=== PATIENT | male | born 1965 | race Caucasian/White ===

== ENCOUNTER 2016-09-17 16:33 | Inpatient (IN) | payer MEDICAID ==
--- NOTE | 2016-09-17 18:45 | C.PDOC ---
History Of Present Illness 51 year old patient presents to the ED requesting detox from heroin and Xanax. Patient admits his last use was yesterday. Patient is pre-screened. He denies any complaints at this time and shows no signs of withdrawal. Time Seen by Provider: 09/17/16 18:14 Chief Complaint (Nursing): Substance Abuse History Per: Patient History/Exam Limitations: no limitations Onset/Duration Of Symptoms: Other Current Symptoms Are (Timing): Still Present Suicide/Self Injury Attempted (Context): None Modifying Factor(s): Other (heroin, xanax) Severity: None Pain Scale Rating Of: 0 Recent travel outside of the [place]: No Additional History Per: Patient Past Medical History Reviewed: Historical Data, Nursing Documentation, Vital Signs Vital Signs: Last Vital Signs Temp 98.2 F 09/17/16 17:13 Pulse 46 L 09/17/16 19:39 Resp 16 09/17/16 19:39 BP 118/65 09/17/16 19:39 Pulse Ox 97 09/17/16 19:39 - Medical History PMH: Back Problems - [facility] Procedures DETOXIFICATION SERVICES FOR SUBSTANCE ABUSE TREATMENT (09/10/15) GROUP EXCAVATING MACHINE OPERATOR FOR SUBSTANCE ABUSE TREATMENT, PSYCHOEDUCATION (09/10/15) Family History: States: Unknown Family Hx - Social History Hx Tobacco Use: Yes Hx Alcohol Use: Yes Hx Substance Use: Yes - Immunization History Hx Tetanus Toxoid Vaccination: No Hx Influenza Vaccination: No Hx Pneumococcal Vaccination: No Review Of Systems Except As Marked, All Systems Reviewed And Found Negative. Constitutional: Positive for: Other (detox) Respiratory: Negative for: Shortness of Breath Gastrointestinal: Negative for: Vomiting Neurological: Negative for: Headache, Dizziness Physical Exam - Physical Exam Appears: No Acute Distress, Other (flat affect) Skin: Warm, Dry Head: Atraumatic, Normacephalic Eye(s): bilateral: Normal Inspection Neck: Normal ROM, Supple Chest: Symmetrical Cardiovascular: Rhythm Regular Respiratory: Normal Breath Sounds, No Rales, No Rhonchi, No Wheezing Back: Normal Inspection Extremity: Normal ROM, No Deformity Neurological/Psych: Oriented x3, Normal Speech Gait: Steady ED Course And Treatment - Laboratory Results Result Diagrams: 09/17/16 19:24 09/17/16 19:24 Lab Interpretation: No Acute Changes O2 Sat by Pulse Oximetry: 97 (room air) Pulse Ox Interpretation: Normal Medical Decision Making Medical Decision Making: Labs ordered and reviewed. In my clinical judgment patient is medically cleared and stable for psychiatric admission. hospital social worker contacted for evaluation. As per CW patient is to be admitted for detox of substance abuse Disposition - Disposition Disposition: HOSPITALIZED Disposition Time: 20:00 Condition: STABLE - POA Present On Arrival: None - Clinical Impression Clinical Impression: Heroin abuse - PA / OPERATOR GROUND BASED [employer] DEFENCE / Resident Statement MD/DO has reviewed & agrees with the documentation as recorded. - Scribe Statement The provider has reviewed the documentation as recorded by the Scribe Sari Estrada All medical record entries made by the Scribe were at my direction and personally dictated by me. I have reviewed the chart and agree that the record accurately reflects my personal performance of the history, physical exam, medical decision making, and the department course for this patient. I have also personally directed, reviewed, and agree with the discharge instructions and disposition. Decision To Admit - Pt Status Changed To: Hospital Disposition Of: Inpatient - Admit Certification Admit to Inpatient:: After my assessment, the patient will require hospitalization for at least two midnights. This is because of the severity of symptoms shown, intensity of services needed, and/or the medical risk in this patient being treated as an outpatient. - InPatient: Physician Admission Certification: I certify that this patient requires 2 or more midnights of care for the following reason:: for heroin detox - . Bed Request Type: Detox Admitting Physician: Chano Edwards Patient Diagnosis: Heroin abuse
[2016-09-17 19:27] LABS: BASO % 0.8 % (0.0-2.0); EOS # 0.1 K/uL (0.0-0.7); EOS % 1.6 % (0.0-4.0); HEMATOCRIT 40.1 % (35.0-51.0); LYMPH # 2.2 K/uL (1.0-4.3); LYMPH % 41.1 % (20.0-40.0); MEAN CORPUSCULAR HEMOGLOBIN 30.9 pg (27.0-31.0); MEAN CORPUSCULAR HGB CONC 32.9 g/dL (33.0-37.0); MEAN PLATELET VOLUME 9.2 fL (7.2-11.7); MONO # 0.4 K/uL (0.0-0.8); MONO % 8.4 % (0.0-10.0); RED CELL DISTRIBUTION WIDTH 14.5 % (11.5-14.5); WHITE BLOOD COUNT 5.3 K/uL (4.8-10.8)
[2016-09-17 19:35] LABS: CHLORIDE 103 mmol/L (98-107); POTASSIUM 4.2 mmol/L (3.6-5.2); SODIUM 141 mmol/L (132-148)
[2016-09-17 19:37] LABS: AST/SGOT 22 U/L (17-59); BILIRUBIN,TOTAL 0.7 mg/dL (0.2-1.3); CARBON DIOXIDE 31 mmol/L (22-30); GFR AFRICAN-AMERICAN > 60
[2016-09-17 19:38] LABS: ALB/GLOB RATIO 1.6 (1.0-2.1); ALCOHOL SERUM < 10 mg/dl (0-10); ALKALINE PHOSPHATASE 58 U/L (38-126); ALT/SGPT 19 U/L (21-72); BLOOD UREA NITROGEN 17 mg/dL (9-20); CALCIUM 8.7 mg/dl (8.6-10.4); GLUCOSE,RANDOM 107 mg/dL (75-110); RBC URINE 1 /hpf (0-3); TOTAL PROTEIN 6.6 g/dL (6.3-8.3); URINE BACTERIA OCC (<OCC); URINE BILIRUBIN NEGATIVE (NEGATIVE); URINE BLOOD NEGATIVE (NEGATIVE); URINE GLUCOSE (UA) NORMAL (Normal); URINE KETONE TRACE mg/dL (NEGATIVE); URINE LEUKOCYTE ESTERASE NEG Leu/uL (Negative); URINE PROTEIN 1+ mg/dL (NEGATIVE); URINE UROBILINOGEN NORMAL mg/dL (0.2-1.0); WBC URINE 1 /hpf (0-5)
[2016-09-17] MEDS ORDERED: Aluminum Hydroxide/Magnesium Hydroxide Susp (30 mL) PO PRN (22:18)
--- NOTE | 2016-09-18 12:33 | PCM.PSYCH ---
Initial Psychiatric Evaluation - Initial Psychiatric Evaluation Type of Admission: Voluntary Legal Status: Capacity Chief Complaint (in patient's own words): "I need to stop heroin" History of Present Illness and Precipitating Events: Patient seen and chart reviewed. He is well-known to us from recent admission. Patient is a 51 year old single male who is unemployed, on SSI, and lives with his mother in [place] Patient reports using "10-15 bags" of heroin per day since late june. Says he was clean for one month but relapsed b/c he couldn;t get into [facility]. Reason was vague. Reports last use was yesterday. Patient reports using 4 mg of Xanax for 2 years. Last use was few days ago. Denies wdw sxs or seizures but is afraid. Used to be an "alcoholic" Patient reports that he has been to detox over 10 times and denies ever going to rehabilitation. Patient is not sure about his after care but is thinking about MAT again with [facility]. He has drug court on Tuesday b/c he was busted with "9 bags." Patient reports he has been incarcerated in the past for 33 months for selling drugs and that that was his longest period of sobriety. Past psychiatric history: none Family psychiatric history: none Past medical history: chronic neck and back pain secondary to workplace injury for which he went on disability Current Medications: Active Medications Generic Name Dose Route Start Last Admin Trade Name Freq PRN Reason Stop Dose Admin Al Hydrox/Mg Hydrox/Simethicone 30 ml 09/17/16 22:18 Maalox 30 Ml PO TID PRN Indigestion / Heartburn Hydroxyzine HCl 25 mg 09/17/16 22:19 Atarax PO Q4H PRN Anxiety Ibuprofen 600 mg 09/17/16 22:19 Motrin Tab PO Q6H PRN Pain, moderate (4-7) Loperamide HCl 2 mg 09/17/16 22:18 Imodium PO Q8 PRN Diarrhea Lorazepam 1 mg 09/18/16 10:00 09/18/16 12:11 Ativan PO 09/21/16 09:59 1 mg BID THI Administration Taper Methadone HCl 10 mg 09/18/16 10:00 09/18/16 10:37 Methadone PO 09/21/16 09:59 10 mg Q24H THI Administration Taper Methadone HCl 5 mg 09/18/16 17:00 Methadone PO 09/18/16 17:01 ONCE ONE Ondansetron HCl 4 mg 09/17/16 22:18 Zofran Tab PO Q8 PRN Nausea/Vomiting Trazodone HCl 50 mg 09/17/16 21:51 09/17/16 21:59 Desyrel PO 50 mg HS PRN Administration Insomnia Past Psychiatric History - Past Psychiatric History Previous Treatment History: None Pertinent Medical Hx (Current Medical&Sleep Prob, Allergies): Allergies Allergy/AdvReac Type Severity Reaction Status Date / Time Tetracyclines Allergy Intermediate Verified 09/17/16 17:17 Penicillins Allergy Verified 09/17/16 17:17 No Known Home Med 09/17/16 Review of Systems - Neurological Neurological: UNREMARKABLE - Psychiatric Psychiatric: Abnormal Sleep Pattern, Anxiety, Irritability. absent: Hallucinations, Homicidal Ideation, Paranoia, Suicidal Ideation Mental Status Examination - Personal Presentation Personal Presentation: Looks stated age - Affect Affect: Constricted - Motor Activity Motor Activity: Calm - Reliability in Providing Information Reliability in Providing Information: Good - Speech Speech: Organized - Mood Mood: Anxious - Formal Thought Process Formal Thought Process: No Impairment - Cognitive Functions Orientation: Person, Place, Situation, Time Sensorium: Alert Attention/Concentration: Attentive Estimate of Intelligence: Average Judgement: Intact, as evidence by: Insight regarding need for hospitalization Memory: Recent intact, as evidence by: Ability to recall events of the day, Remote intact, as evidenced by: Abilit to recall sig. 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 dependence - Recommended/Plan of Treatment Treatment Recommendations and Plan of Treatment: Opioids: -Methadone detox with low dose: 15 mg x2 days, then 10 and 5 mg He wants to be dc'ed on Tuesday due to "drug court" -As needed medications -Support and psychoeducation -MA and CBT -Attend groups and activities -Refer to MAT and rehabilitation Benzos: -Monitor withdrawal symptoms -Short ativan detox -As needed medications -Attend groups and activities -MA for abstinence 33 minutes Projected ELOS: 3 days Prognosis: Good with treament Discharge Plan and Discharge Criteria: No wdw sxs Refer to [facility] in [place] + [place] - Smoking Cessation Smoking Cessation Initiated: Yes
[2016-09-19 15:00] VITALS: RESP 18
[2016-09-20 05:56] VITALS: BP 131/84; PULSE 58; TEMP 97.7; O2SAT 99
--- NOTE | 2016-09-20 13:23 | PCM.PYCHDC ---
Mental Status Examination - Mental Status Examination Orientation: Person, Place, Situation, Time Memory: Intact Mood: Anxious Affect: Constricted Speech: Appropriate Attention: WNL Concentration: Poor Association: WNL Fund of Knowledge: WNL Formal Thought Process: No Impairment Suicidal Ideation: No Current Homicidal Ideation?: No Discharge Summary - Discharge Note Reason for Hospitalization: Heroin detox Consultations:: List each consultation separately and include: 1. Reason for request. 2. Findings. 3. Follow-up Summary of Hospital Course include:: 1. Description of specific treatment plan utilized for patients during their course of treatmen. 2. Summarize the time- course for resolution of acute symptoms and/or regressed behaviors. 3. Describe issues identified and worked on during hospitalization. 4. Describe medication utilized. 5. Describe medical problems identified and treated. 6. Reassessment of suicide risk Summary of Hospital Course: On admission: He is well-known to us from recent admission. Patient is a 51 year old single male who is unemployed, on SSI, and lives with his mother in [place] Patient reports using "10-15 bags" of heroin per day since late june. Says he was clean for one month but relapsed b/c he couldn;t get into [facility]. Reason was vague. Reports last use was yesterday. Patient reports using 4 mg of Xanax for 2 years. Last use was few days ago. Denies wdw sxs or seizures but is afraid. Used to be an "alcoholic" Patient reports that he has been to detox over 10 times and denies ever going to rehabilitation. Patient is not sure about his after care but is thinking about MAT again with [facility]. He has drug court on Tuesday b/c he was busted with "9 bags." Patient reports he has been incarcerated in the past for 33 months for selling drugs and that that was his longest period of sobriety. Past psychiatric history: none Family psychiatric history: none Past medical history: chronic neck and back pain secondary to workplace injury for which he went on disability Hospital course: The pt was admitted and started on treatment with psychotherapy, support, psychoeducation and medications. MA and CBT used. All the risks and benefits of medications are discussed and the patient understood and agreed. After care discussed with the patient. He was interested in IOP and [facility] He had an extra dose each day due to ongoing sxs but his starting dose was low, too, due to chronic bradycardia. He was asymptomatic despite very low pulse He agreed to stay until Tue and complete his detox but then Tuesday morning he suddenly decided to leave AMA b/c of a court that day. Court was for possession. He was reasured that a letter can be given but he still said no. Since he got 15 mg on Tuesday, he had a risk of withdrawal, then relapse, even OD and . Shared with him but he still declined to stay. 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
--- NOTE | 2016-09-20 13:23 | PCM.PYCHPN ---
Psychiatric Progress Note - Psychiatric Progress Note Patient seen today, length of contact: 19 min Patient Chief Complaint: "I am still withdrawing" Problems Identified/Issues Discussed: he is seen, chart reviewed and case discussed. He is in some opioid wdw. He got 10 in AM and a 5 is added to PM He understood that he would have to leave on Tuesday , not Tuesday b/c he would need 10 mg tomorrow and 5 on Tue (AM) He will get a letter for the court. Otherwise, he is OK. Isolates self at times, anxious and withdrawn but not depressed as much and not suicidal. No Ses MN and CBT used Medication Change: Yes (methadone detox adjusted) Medical Record Reviewed: Yes Mental Status Examination - Cognitive Function Orientation: Person, Place, Situation, Time Memory: Intact Attention: WNL Concentration: Poor Association: WNL Fund of Knowledge: WNL - Mood Mood: Anxious - Affect Affect: Constricted - Speech Speech: Appropriate - Formal Thought Process Formal Thought Process: No Impairment - Suicidal Ideation Suicidal Ideation: No - Homicidal Ideation Homicidal Ideation: No Goal/Treatment Plan - Goal/Treatment Plan Need for Continued Stay: Discharge may exacerbated symptoms, Severe functional impairment Progress Toward Problem(s) and Goals/Treatment Plan: Opioids: -Methadone detox adjusted He wants to be dc'ed on Tuesday due to "drug court" -As needed medications -Support and psychoeducation -MN and CBT -Attend groups and activities -Refer to MAT and rehabilitation Benzos: -Monitor withdrawal symptoms -Short ativan detox -As needed medications -Attend groups and activities -MN for abstinence Estimated Date of D/C: 09/21/16 - Smoking Cessation Smoking Cessation Initiated: Yes
--- NOTE | 2016-09-21 18:52 | CARD ---
APPROVED REPORT EKG Measurement Heart [id number] <Conclusion> Sinus bradycardia Otherwise normal ECG
== END 2016-09-20 07:55 | disposition left against medical advice (07) | DRG 743 ==
LOC: C.ER 16:33 → C.7D 20:03
PROVIDERS: ADMIT Psychiatry & Neurology Psychiatry; ATTEND Psychiatry & Neurology Psychiatry
PROC: HZ91ZZZ Pharmacotherapy for Substance Abuse Treatment, Methadone Maintenance (ICD-10-PCS; principal; 2016-09-17)
PROC: HZ2ZZZZ Detoxification Services for Substance Abuse Treatment (ICD-10-PCS; 2016-09-17)
PROC: HZ52ZZZ Individual Psychotherapy for Substance Abuse Treatment, Cognitive-Behavioral (ICD-10-PCS; 2016-09-17)
PROC: HZ56ZZZ Individual Psychotherapy for Substance Abuse Treatment, Psychoeducation (ICD-10-PCS; 2016-09-17)
DX: F11.23 Opioid dependence with withdrawal (principal); F16.20 Hallucinogen dependence, uncomplicated; M54.2 Cervicalgia; G89.29 Other chronic pain; M54.9 Dorsalgia, unspecified

== ENCOUNTER 2017-03-31 16:22 | Emergency (ER) | payer MEDICAID | END 2017-03-31 16:34 | disposition left against medical advice (07) | LOC: C.ER 16:22 | DX: Z02.89 Encounter for other administrative examinations (principal); R06.02 Shortness of breath ==

== ENCOUNTER 2017-07-21 14:09 | Emergency (ER) | payer MEDICAID ==
--- NOTE | 2017-07-21 14:56 | C.PDOC ---
History Of Present Illness 52 yo male come in for evaluation of Right thigh painful mass gradually developed for past week. Pt admits, tried to squeeze with worsening of pain and swelling, noted some discharges early today. Pt sts, similar sx in past " different parts of body". Otherwise, pt denies fever, chills, Right leg trauma or injury, weakness, deformity, sensory or vascular deficit, CP, SOB, dyspnea, abd. pain, V/D. Ambulate to ED, appears high/intoxicated. Time Seen by Provider: 07/21/17 14:38 Chief Complaint (Nursing): Abnormal Skin Integrity History Per: Patient Onset/Duration Of Symptoms: Gradual Past Medical History Reviewed: Historical Data, Nursing Documentation, Vital Signs Vital Signs: Last Vital Signs Temp 98.7 F 07/21/17 17:32 Pulse 66 07/21/17 17:32 Resp 18 07/21/17 17:32 BP 108/78 07/21/17 17:32 Pulse Ox 100 07/21/17 17:32 - Medical History PMH: Back Problems Denies: Diabetes, Hepatitis, HIV, HTN, Chronic Kidney Disease, Seizures, Sexually Transmitted Disease - [facility] Procedures DETOXIFICATION SERVICES FOR SUBSTANCE ABUSE TREATMENT (09/17/16) GROUP RABBET OPERATOR FOR SUBSTANCE ABUSE TREATMENT, PSYCHOEDUCATION (09/10/15) INDIV PSYCHOTHERAPY FOR SUBSTANCE ABUSE, COGNITIV BEHAVIORAL (09/17/16) INDIV PSYCHOTHERAPY FOR SUBSTANCE ABUSE, PSYCHOEDUCATION (09/17/16) PHARMACOTHERAPY FOR SUBSTANCE ABUSE, METHADONE MAINT (09/17/16) Family History: States: No Known Family Hx - Social History Hx Tobacco Use: Yes Hx Alcohol Use: No Hx Substance Use: Yes - Immunization History Hx Tetanus Toxoid Vaccination: No Hx Influenza Vaccination: No Hx Pneumococcal Vaccination: No Review Of Systems Except As Marked, All Systems Reviewed And Found Negative. Constitutional: Negative for: Fever, Chills ENT: Negative for: Throat Pain Cardiovascular: Negative for: Chest Pain Respiratory: Negative for: Cough, Shortness of Breath, Wheezing, Other Gastrointestinal: Negative for: Nausea, Vomiting, Abdominal Pain, Diarrhea Genitourinary: Negative for: Dysuria Musculoskeletal: Positive for: Leg Pain Skin: Positive for: Lesions Neurological: Negative for: Weakness, Numbness, Headache, Dizziness Physical Exam - Physical Exam Appears: Well, No Acute Distress, Other (appears intoxicated) Skin: Normal Color, Warm, Dry, Other (Right anterior thigh: small tender mass 2cm diameter with open wound, (+) scant purulent discharge, (+) erythema, (+) proximal streaking. No flactulance.) Head: Normacephalic Eye(s): bilateral: PERRL (pin-point B/L) Nose: No Flaring, No Discharge Throat: No Drooling Neck: Trachea Midline, Supple Cardiovascular: Rhythm Regular Respiratory: No Decreased Breath Sounds, No Accessory Muscle Use, No Stridor, No Wheezing Gastrointestinal/Abdominal: Soft, No Tenderness, No Distention, No Guarding Back: No CVA Tenderness Extremity: Normal ROM (RLE), No Tenderness, No Pedal Edema, No Deformity, No Swelling Neurological/Psych: Oriented x3, Normal Speech, Normal Motor, Normal Sensation, Normal Reflexes ED Course And Treatment - Laboratory Results Result Diagrams: 07/21/17 15:06 07/21/17 15:06 Lab Interpretation: No Acute Changes O2 Sat by Pulse Oximetry: 95 Pulse Ox Interpretation: Normal Progress Note: Pt was OBS in Ed for 2.5 hours. On re-evaluation, pt appears AAO #3, comfortable, not in any apparent distress. Afebrile, hemodynamicaly stable. PulsEOx 95 %RA. Neck: Supple, (-) meningeal sign. Lungs: CTA B/L, BS equal B/L. Abd: benign, (-) guarding, (-) rebound. RLE: exam c/w Right anterior thigh small early abscess with cellulitis, self-draining, no flactulance. Neurologicaly intact. Blood work review and appears without acute abnormalities, no acute leukocytosis. Blood Cx- pending. Pt received prophy Vanco #1. Pt advised on course of ds. ref. to F/u with PMD or ED in 2 days for re-evaluation without fail. Return to ED if no improvement n 2 days or any worsening or new changes. Disposition Counseled Patient/Family Regarding: Studies Performed, Diagnosis, Need For Followup, Rx Given - Disposition Referrals: [facility] [Outside] Disposition: HOME/ ROUTINE Disposition Time: 16:35 Condition: STABLE Additional Instructions: Take medication as prescribed Warm salty water compresses to area 2-3 times daily for 5 minutes Return to ED in 2 days if no improvement in circled redness around wound or if developed fever, or any other new changes Follow up with PMD in2 -3 days for re-evaluation. Prescriptions: Clindamycin [Cleocin] 300 mg PO Q6 #28 cap Prednisone [Deltasone] 40 mg PO DAILY #6 tablet Instructions: Skin Abscess, Cellulitis (Skin Infection), Adult (DC) Forms: [email or web address] (Wolof) - Clinical Impression Clinical Impression: Cellulitis, Abscess
[2017-07-21 15:10] LABS: BASO % 0.4 % (0.0-2.0); EOS # 0.2 K/uL (0.0-0.7); EOS % 3.1 % (0.0-4.0); HEMOGLOBIN 12.9 g/dL (12.0-18.0); LYMPH % 25.6 % (20.0-40.0); MEAN CELL VOLUME 93.6 fL (80.0-94.0); MEAN CORPUSCULAR HEMOGLOBIN 31.6 pg (27.0-31.0); MEAN CORPUSCULAR HGB CONC 33.8 g/dL (33.0-37.0); MEAN PLATELET VOLUME 9.4 fL (7.2-11.7); MONO # 0.7 K/uL (0.0-0.8); MONO % 9.4 % (0.0-10.0); NEUT # 4.8 K/uL (1.8-7.0); NEUT % 61.5 % (50.0-75.0); NRBC % 0.1 % (0.0-2.0); RBC 4.08 Mil/uL (4.40-5.90); RED CELL DISTRIBUTION WIDTH 13.8 % (11.5-14.5); WHITE BLOOD COUNT 7.7 K/uL (4.8-10.8)
[2017-07-21 15:22] LABS: BLOOD UREA NITROGEN 17 mg/dL (9-20); CALCIUM 8.9 mg/dl (8.6-10.4); GFR AFRICAN-AMERICAN > 60; GFR NON-AFRICAN AMERICAN > 60
[2017-07-21] MEDS ORDERED: Vancomycin 1 gm/NS 200 ml 1 GM/200 ML BAG IVPB ONE ×2 (16:00)
[2017-07-21 16:25] LABS: URINE BILIRUBIN NEGATIVE (NEGATIVE); URINE BLOOD NEGATIVE (NEGATIVE); URINE CLARITY Hazy (Clear); URINE COLOR Yellow (YELLOW); URINE GLUCOSE (UA) NORMAL (Normal); URINE LEUKOCYTE ESTERASE NEG Leu/uL (Negative); URINE PROTEIN NEGATIVE (NEGATIVE); URINE UROBILINOGEN NORMAL mg/dL (0.2-1.0)
[2017-07-21 16:45] LABS: BARBITURATES, UR NEGATIVE (NEGATIVE); BENZODIAZEPINES, UR NEGATIVE (NEGATIVE); OPIATES, UR NEGATIVE (NEGATIVE); PHENCYCLIDINE, UR NEGATIVE (NEGATIVE)
[2017-07-21 17:47] VITALS: BP 108/78; PULSE 66; RESP 18; TEMP 98.7
[2017-07-23 14:59] VITALS: O2SAT 95
== END 2017-07-21 17:35 | disposition home or self-care (01) ==
LOC: C.ER 14:09
DX: L03.115 Cellulitis of right lower limb (principal); L02.415 Cutaneous abscess of right lower limb
CPT/HCPCS: 80048; 80324; 80345; 80346; 80349; 80353; 80358; 80361; 81001; 83992; 85025; 87040; 96365; 96366; 96375; 99285; J2930; J3370

== ENCOUNTER 2017-07-27 10:43 | Observation (INO) | payer MEDICAID ==
[2017-07-27 11:40] LABS: BASO % 0.6 % (0.0-2.0); EOS % 0.5 % (0.0-4.0); HEMOGLOBIN 14.1 g/dL (12.0-18.0); LYMPH # 1.7 K/uL (1.0-4.3); LYMPH % 23.2 % (20.0-40.0); MEAN CELL VOLUME 92.9 fL (80.0-94.0); MEAN CORPUSCULAR HEMOGLOBIN 31.4 pg (27.0-31.0); MEAN CORPUSCULAR HGB CONC 33.7 g/dL (33.0-37.0); MEAN PLATELET VOLUME 8.6 fL (7.2-11.7); MONO # 0.6 K/uL (0.0-0.8); MONO % 7.8 % (0.0-10.0); NEUT # 4.9 K/uL (1.8-7.0); NEUT % 67.9 % (50.0-75.0); RBC 4.49 Mil/uL (4.40-5.90); RED CELL DISTRIBUTION WIDTH 13.7 % (11.5-14.5); WHITE BLOOD COUNT 7.2 K/uL (4.8-10.8)
--- NOTE | 2017-07-27 11:45 | C.PDOC ---
History Of Present Illness 52 y/o male presents to the ED requesting detox from alcohol and heroin. Last used yesterday. Patient states he was here for I&D of abscess to his right thigh on 07/21 and has only taken a few doses of the antibiotic due to being incarcerated for 1 day. Currently denies any pain, discharge, or bleeding from the area. No fevers, chills, nausea, or vomiting. Patient has no other complaints. Time Seen by Provider: 07/27/17 11:07 Chief Complaint (Nursing): Substance Abuse History Per: Patient History/Exam Limitations: no limitations Past Medical History Reviewed: Historical Data, Nursing Documentation, Vital Signs Vital Signs: Last Vital Signs Temp 98.0 F 07/27/17 13:30 Pulse 80 07/27/17 14:07 Resp 14 07/27/17 14:07 BP 108/46 L 07/27/17 14:07 Pulse Ox 98 07/27/17 14:50 - Medical History PMH: Back Problems Denies: Diabetes, Hepatitis, HIV, HTN, Chronic Kidney Disease, Seizures, Sexually Transmitted Disease Surgical History: No Surg Hx - [facility] Procedures DETOXIFICATION SERVICES FOR SUBSTANCE ABUSE TREATMENT (09/17/16) GROUP PHOTOGRAPHER MOTION PICTURE FOR SUBSTANCE ABUSE TREATMENT, PSYCHOEDUCATION (09/10/15) INDIV PSYCHOTHERAPY FOR SUBSTANCE ABUSE, COGNITIV BEHAVIORAL (09/17/16) INDIV PSYCHOTHERAPY FOR SUBSTANCE ABUSE, PSYCHOEDUCATION (09/17/16) PHARMACOTHERAPY FOR SUBSTANCE ABUSE, METHADONE MAINT (09/17/16) Family History: States: Unknown Family Hx - Social History Hx Tobacco Use: Yes Hx Alcohol Use: No Hx Substance Use: No (heroin) - Immunization History Hx Tetanus Toxoid Vaccination: No Hx Influenza Vaccination: No Hx Pneumococcal Vaccination: No Review Of Systems Constitutional: Negative for: Fever, Chills Skin: Positive for: Other (abscess to right thigh) Psych: Positive for: Other (substance abuse). Negative for: Suicidal ideation Physical Exam - Physical Exam Appears: No Acute Distress Skin: Other (Healing abscess to proximal right thigh, no active drainage, erythema, or induration) Head: Atraumatic, Normacephalic Eye(s): bilateral: PERRL, EOMI Nose: Normal Oral Mucosa: Moist Neck: Supple Chest: No Tenderness Cardiovascular: Rhythm Regular, No Murmur Respiratory: No Rales, No Rhonchi, No Wheezing, Other (Clear to auscultation bilaterally) Gastrointestinal/Abdominal: Soft, No Tenderness, No Distention Back: Normal Inspection, No CVA Tenderness Extremity: No Calf Tenderness, No Swelling Neurological/Psych: Oriented x3, Normal Speech, No Other (gross focal deficits) ED Course And Treatment - Laboratory Results Result Diagrams: 07/27/17 11:37 07/27/17 11:37 O2 Sat by Pulse Oximetry: 98 (RA) Pulse Ox Interpretation: Normal Medical Decision Making Medical Decision Making: Time: 11:20 Initial Plan: * Urine drug screen * Alcohol serum * CMP * CBC * Urinalysis * Pending detox bed placement 157 pm pt is medically cleared for detox admission. pt has not completed clindamycin for recent abscess; recommend pt get clindamycin 300 mg po q 6 for next 7 days. 215 pm pt is bradycardic; ekg ordered, which shows fli[pped twaves in lateral leads, no active chest pain. different from ekg of 09/22. pt is cocaine positive on utox. 240 pm trop ordered, discussed with - pt to be admitted to for [facility] floor. Disposition Discussed With .: Zachery Lazo Jr. Doctor Will See Patient In The: Hospital - Disposition Disposition: HOSPITALIZED Disposition Time: 14:49 Condition: GOOD Forms: [facility] (Turkish) - Clinical Impression Clinical Impression: Bradycardia, Abnormal EKG, Poly-drug misuser - PA / EMBROIDERER / Resident Statement MD/DO has reviewed & agrees with the documentation as recorded. - Scribe Statement The provider has reviewed the documentation as recorded by the Scribe (Thuy Kwon) All medical record entries made by the Scribe were at my direction and personally dictated by me. I have reviewed the chart and agree that the record accurately reflects my personal performance of the history, physical exam, medical decision making, and the department course for this patient. I have also personally directed, reviewed, and agree with the discharge instructions and disposition.
[2017-07-27 11:47] LABS: URINE BILIRUBIN NEGATIVE (NEGATIVE); URINE BLOOD NEGATIVE (NEGATIVE); URINE CLARITY Clear (Clear); URINE COLOR Yellow (YELLOW); URINE GLUCOSE (UA) NORMAL (Normal); URINE LEUKOCYTE ESTERASE NEG Leu/uL (Negative); URINE PROTEIN NEGATIVE (NEGATIVE); URINE UROBILINOGEN NORMAL mg/dL (0.2-1.0)
[2017-07-27 11:53] LABS: ALB/GLOB RATIO 1.3 (1.0-2.1); ALT/SGPT 27 U/L (21-72); AST/SGOT 21 U/L (17-59); BLOOD UREA NITROGEN 17 mg/dL (9-20); CALCIUM 8.9 mg/dl (8.6-10.4); GFR AFRICAN-AMERICAN > 60; GFR NON-AFRICAN AMERICAN > 60
[2017-07-27 11:54] LABS: ALBUMIN 4.2 g/dL (3.5-5.0)
[2017-07-27 12:08] LABS: BARBITURATES, UR NEGATIVE (NEGATIVE); PHENCYCLIDINE, UR NEGATIVE (NEGATIVE)
[2017-07-27 12:31] LABS: BENZODIAZEPINES, UR POSITIVE (NEGATIVE); OPIATES, UR POSITIVE (NEGATIVE)
--- NOTE | 2017-07-27 16:25 | CP.PCM.HP ---
History of Present Illness - History of Present Illness History of Present Illness: CC: "I want detox" HPI: Mr Fountain is a 52 year old male with a PMHx of polysubstance abuse who presented to the ED for detox. However, an EKG was done which showed t-wave changes compared to an old EKG thus the patient was admitted to medicine for obs. Patient currently has no chest pain. He states he occasionally gets deep pressure like chest pain on exertion such as when he jogs. He denies shortness of breath. Patient tested positive for cocaine however he denied using cocaine - he stated his last use for years ago. He said his friend smoked crack cocaine this morning but he did not. He's never had a stress test or had a cardiac cath. He does not have a primary medical doctor. Additionally, patient was in [facility] ER last week for a right leg cyst - he was prescribed clindamycin but only took a few doses. PMD: none PMHx: Denies PSHx: Denies Allergies: Tetracyclines, Penicillins - skin rash FamHx: Mother - DM SocialHx: smokes 1/2 ppd for last 20 years; daily pint of vodka drinker; 10 bags of daily heroin use via sniffing; Denies cocaine use; Lives at home with mother Present on Admission - Present on Admission Any Indicators Present on Admission: No Review of Systems - Constitutional Constitutional: absent: Chills, Fatigue, Fever, Weight Loss - EENT Eyes: absent: Change in Vision - Cardiovascular Cardiovascular: Chest Pain with Activity, Dyspnea on Exertion. absent: Chest Pain, Chest Pain at Rest, Diaphoresis, Dyspnea, Irregular Heart Rhythm - Respiratory Respiratory: absent: Cough, Dyspnea on Exertion, Wheezing - Gastrointestinal Gastrointestinal: absent: Abdominal Pain, Bloating, Constipation, Diarrhea - Genitourinary Genitourinary: absent: Dysuria - Musculoskeletal Musculoskeletal: absent: Arthralgias - Integumentary Integumentary: absent: Bleeding Lesions - Neurological Neurological: absent: Convulsions, Disequilibrium, Dizziness Past Patient History - Past Medical History & Family History Past Medical History?: No - Past Social History Smoking Status: Light Smoker < 10 Cigarettes Daily - CARDIAC Hx Hypertension: No - PULMONARY Hx Tuberculosis: No - NEUROLOGICAL Hx Seizures: No - HEENT Hx HEENT Problems: No - RENAL Hx Chronic Kidney Disease: No - ENDOCRINE/METABOLIC Hx Endocrine Disorders: No - HEMATOLOGICAL/ONCOLOGICAL Hx Human Immunodeficiency Virus (HIV): No - INTEGUMENTARY Hx Dermatological Problems: No - MUSCULOSKELETAL/RHEUMATOLOGICAL Hx Falls: No - GASTROINTESTINAL Hx Gastrointestinal Disorders: No - GENITOURINARY/GYNECOLOGICAL Hx Sexually Transmitted Disorders: No - PSYCHIATRIC Hx Substance Use: No (heroin) - SURGICAL HISTORY Hx Surgeries: No - ANESTHESIA Hx Anesthesia: No Meds Allergies/Adverse Reactions: Allergies Allergy/AdvReac Type Severity Reaction Status Date / Time Tetracyclines Allergy Intermediate Verified 07/21/17 14:31 Penicillins Allergy Verified 07/21/17 14:31 Physical Exam - Constitutional Appears: No Acute Distress, Unkempt - Head Exam Head Exam: ATRAUMATIC, NORMAL INSPECTION - Eye Exam Eye Exam: EOMI Pupil Exam: PERRL - ENT Exam ENT Exam: Mucous Membranes Moist - Neck Exam Neck exam: Negative for: Lymphadenopathy, Tenderness Additional comments: JVD distention - Respiratory Exam Respiratory Exam: Clear to Auscultation Bilateral, NORMAL BREATHING PATTERN. absent: Rales, Rhonchi, Wheezes - Cardiovascular Exam Cardiovascular Exam: REGULAR RHYTHM, JVD, RRR, +S1, +S2. absent: Bradycardia, Tachycardia, Systolic Murmur - GI/Abdominal Exam GI & Abdominal Exam: Normal Bowel Sounds, Soft. absent: Distended, Firm, Guarding, Hernia, Tenderness - Extremities Exam Extremities exam: Positive for: normal capillary refill, normal inspection, pedal pulses present. Negative for: tenderness Additional comments: right circumscribed 1 inch diameter cyst above right knee - Back Exam Back exam: NORMAL INSPECTION - Neurological Exam Neurological exam: Alert, CN II-XII Intact, Oriented x3 - Psychiatric Exam Psychiatric exam: Flat Affect - Skin Skin Exam: Intact, Normal Color, Warm Results - Vital Signs Recent Vital Signs: Last Vital Signs Temp 98.9 F 07/27/17 16:01 Pulse 53 L 07/27/17 16:01 Resp 20 07/27/17 16:01 BP 105/70 07/27/17 16:01 Pulse Ox 96 07/27/17 16:01 - Labs Result Diagrams: 07/27/17 11:37 07/27/17 11:37 Labs: Laboratory Results - last 24 hr 07/27/17 07/27/17 07/27/17 11:37 11:37 11:37 WBC 7.2 RBC 4.49 Hgb 14.1 Hct 41.7 MCV 92.9 MCH 31.4 H MCHC 33.7 RDW 13.7 Plt Count 169 MPV 8.6 Neut % (Auto) 67.9 Lymph % (Auto) 23.2 [place] % (Auto) 7.8 Eos % (Auto) 0.5 Baso % (Auto) 0.6 Neut # (Auto) 4.9 Lymph # (Auto) 1.7 [place] # (Auto) 0.6 Eos # (Auto) 0.0 Baso # (Auto) 0.0 Sodium 144 Potassium 4.4 Chloride 104 Carbon Dioxide 28 Anion Gap 16 BUN 17 Creatinine 0.9 Est GFR ( Amer) > 60 Est GFR (Non-Af Amer) > 60 Random Glucose 98 Calcium 8.9 Total Bilirubin 0.7 AST 21 ALT 27 Alkaline Phosphatase 85 Troponin I Total Protein 7.5 Albumin 4.2 Globulin 3.2 Albumin/Globulin Ratio 1.3 Urine Color Yellow Urine Clarity Clear Urine pH 5.0 Ur Specific [place] 1.027 Urine Protein Negative Urine Glucose (UA) Normal Urine Ketones Trace Urine Blood Negative Urine Nitrate Negative Urine Bilirubin Negative Urine Urobilinogen Normal Ur Leukocyte Esterase Neg Urine WBC (Auto) 1 Urine Opiates Screen Urine Methadone Screen Ur Barbiturates Screen Ur Phencyclidine Scrn Ur Amphetamines Screen U Benzodiazepines Scrn U Oth Cocaine Metabols U Cannabinoids Screen Alcohol, Quantitative < 10 07/27/17 07/27/17 11:37 14:51 WBC RBC Hgb Hct MCV MCH MCHC RDW Plt Count MPV Neut % (Auto) Lymph % (Auto) Adams % (Auto) Eos % (Auto) Baso % (Auto) Neut # (Auto) Lymph # (Auto) Adams # (Auto) Eos # (Auto) Baso # (Auto) Sodium Potassium Chloride Carbon Dioxide Anion Gap BUN Creatinine Est GFR ( Amer) Est GFR (Non-Af Amer) Random Glucose Calcium Total Bilirubin AST ALT Alkaline Phosphatase Troponin I 0.0220 Total Protein Albumin Globulin Albumin/Globulin Ratio Urine Color Urine Clarity Urine pH Ur Specific [place] Urine Protein Urine Glucose (UA) Urine Ketones Urine Blood Urine Nitrate Urine Bilirubin Urine Urobilinogen Ur Leukocyte Esterase Urine WBC (Auto) Urine Opiates Screen Positive H Urine Methadone Screen Positive H Ur Barbiturates Screen Negative Ur Phencyclidine Scrn Negative Ur Amphetamines Screen Negative U Benzodiazepines Scrn Positive U Oth Cocaine Metabols Positive H U Cannabinoids Screen Negative Alcohol, Quantitative Assessment & Plan (1) Abnormal EKG Assessment and Plan: Cardiology consult, Dr Campos. Follow recs. EKG shows t-wave inversions in leads V2, V3, V4, V5 which were not present on EKG from 2016 On telemetry for obs No chest pain, Troponin NEGATIVE F/U repeat EKG Aspirin 81mg PO QD Crestor 10mg PO HS F/U Lipid panel, TSH/Free T4 Status: Acute Priority: High (2) Poly-drug misuser Assessment and Plan: Psychiatry consult, Dr Guerrier. Follow recs. Once seen by angle roll operator - will transfer to detox Status: Acute Priority: High (3) Cellulitis Assessment and Plan: Right leg 1 inch circumbscribed abscess Clindamycin 300mg PO Q8H (QTc 428 on EKG) Status: Acute Priority: Medium (4) Prophylactic measure Assessment and Plan: Lovenox 40mg SC QD, SCDs No GI prophylaxis indicated Heart healthy diet Status: Acute Priority: Medium
[2017-07-28 07:23] LABS: BASO % 0.4 % (0.0-2.0); EOS # 0.1 K/uL (0.0-0.7); HEMOGLOBIN 13.5 g/dL (12.0-18.0); LYMPH # 2.8 K/uL (1.0-4.3); LYMPH % 38.5 % (20.0-40.0); MEAN CELL VOLUME 93.1 fL (80.0-94.0); MEAN CORPUSCULAR HEMOGLOBIN 31.6 pg (27.0-31.0); MONO # 0.7 K/uL (0.0-0.8); MONO % 9.1 % (0.0-10.0); NEUT # 3.6 K/uL (1.8-7.0); RBC 4.28 Mil/uL (4.40-5.90); RED CELL DISTRIBUTION WIDTH 13.7 % (11.5-14.5); WHITE BLOOD COUNT 7.3 K/uL (4.8-10.8)
[2017-07-28 07:34] LABS: LDL CHOLESTEROL 88 mg/dL (0-129)
--- NOTE | 2017-07-28 07:40 | CP.PCM.PN ---
Subjective - Date & Time of Evaluation Date of Evaluation: 07/28/17 Time of Evaluation: 07:39 - Subjective Subjective: Medicine progress note for 's service Patient was seen and examined at bedside. Patient in no acute distress. Patient denies chest pain and states he only has chest pain when he is running or exercising, but never has the chest pain at rest. Patient denies abdominal pain , nausea, vomiting, fevers, headaches. Objective - Vital Signs/Intake and Output Vital Signs (last 24 hours): Temp Pulse Resp BP Pulse Ox 97.9 F 62 20 122/78 98 07/27/17 23:00 07/27/17 23:30 07/27/17 23:00 07/27/17 23:00 07/27/17 23:00 - Medications Medications: Current Medications Acetaminophen (Tylenol 325mg Tab) 650 mg PO Q6 PRN PRN Reason: Pain, moderate (4-7) Aspirin (Aspirin Chewable) 81 mg PO DAILY [facility] Last Admin: 07/27/17 16:24 Dose: 81 mg Chlordiazepoxide (Librium) 25 mg PO Q6H [facility] Stop: 07/29/17 09:16 Last Admin: 07/28/17 03:12 Dose: 25 mg Chlordiazepoxide (Librium) 25 mg PO Q8 [facility] Stop: 07/30/17 14:01 Chlordiazepoxide (Librium) 25 mg PO BID [facility] Stop: 07/31/17 22:00 Chlordiazepoxide (Librium) 25 mg PO Q4H PRN PRN Reason: Symptoms of alcohol withdrawl Clindamycin HCl (Cleocin) 300 mg PO TID [facility] PRN Reason: Protocol Last Admin: 07/27/17 18:55 Dose: 300 mg Enoxaparin Sodium (Lovenox) 40 mg SC DAILY [facility] Folic Acid (Folic Acid) 1 mg PO DAILY [facility] Multivitamins (Hexavitamin) 1 tab PO DAILY [facility] Rosuvastatin Calcium (Crestor) 10 mg PO HS [facility] Last Admin: 07/27/17 21:48 Dose: 10 mg Thiamine HCl (Vitamin B1 Tab) 100 mg PO DAILY [facility] - Labs Labs: 07/28/17 07:00 - Constitutional Appears: No Acute Distress - Head Exam Head Exam: ATRAUMATIC, NORMAL INSPECTION - Eye Exam Eye Exam: EOMI, Normal appearance - ENT Exam ENT Exam: Mucous Membranes Moist - Respiratory Exam Respiratory Exam: Clear to Ausculation Bilateral, NORMAL BREATHING PATTERN. absent: Rhonchi, Wheezes, Respiratory Distress - Cardiovascular Exam Cardiovascular Exam: Bradycardia, +S1, +S2 - GI/Abdominal Exam GI & Abdominal Exam: Soft, Normal Bowel Sounds. absent: Distended, Tenderness - Extremities Exam Extremities Exam: Normal Inspection. absent: Pedal Edema, Tenderness - Neurological Exam Neurological Exam: Alert, Awake, Oriented x3 - Psychiatric Exam Psychiatric exam: Normal Affect, Normal Mood - Skin Skin Exam: Dry, Intact, Normal Color, Warm Assessment and Plan - Assessment and Plan (Free Text) Plan: (1) Unstable angina Assessment and Plan: Cardiology consult, Dr Campos. Follow recs. EKG shows t-wave inversions in leads V2, V3, V4, V5 which were not present on EKG from 2016 On telemetry No chest pain, Troponin NEGATIVE Aspirin 81mg PO QD Crestor 10mg PO HS Lipid panel: TG, 68, Chol 152, LDL 88, HDL40 TSH/Free T4: 2.35/7.08 Echo: per Dr. Campos note, wall motion abnormality of the mid to distal anterior wall and apex suggestive of involvement of LAD which corresponds to the EKG abnormalities; patient needs cardiac cath. (2) Poly-drug misuser Assessment and Plan: Psychiatry consult, Dr Guerrier. Follow recs. Once seen and cleared by refrigerator crater - will transfer to detox (3) Cellulitis Assessment and Plan: Right leg 1 inch circumbscribed abscess Clindamycin 300mg PO Q8H (QTc 428 on EKG) (4) Prophylactic measure Assessment and Plan: Lovenox 40mg SC QD, SCDs No GI prophylaxis indicated Heart healthy diet *Patient was seen by Dr. Campos on 07/28/17 and was taken for a cardiac cath which showed lesions on the proximal LAD (100%) and diagonal (50%). Patient is planned for [place] [facility], 07[place]17, for possible intervention.
[2017-07-28 07:41] LABS: ALB/GLOB RATIO 1.2 (1.0-2.1); ALBUMIN 3.4 g/dL (3.5-5.0); ALT/SGPT 23 U/L (21-72); AST/SGOT 23 U/L (17-59); BLOOD UREA NITROGEN 21 mg/dL (9-20); CALCIUM 8.4 mg/dl (8.6-10.4); GFR AFRICAN-AMERICAN > 60; GFR NON-AFRICAN AMERICAN > 60; HDL CHOLESTEROL 40 mg/dL (30-70)
[2017-07-28 07:43] LABS: T4 7.08 ug/dL (5.5-11.0)
[2017-07-28] MEDS ORDERED: Perflutren Lipid Microsphere 1.5 ML SUS IV ONE (09:58)
--- NOTE | 2017-07-28 11:05 | CP.PCM.CON ---
History of Present Illness - History of Present Illness History of Present Illness: I was asked to see patient by . patient is a 52 year old male with PMH HTN, polysubstance abuse who presents with progressive dyspnea and chest pain. He states symptoms began one month ago , and is described as a central chest pain. He ahs assocaited dyspnea. Symptoms occur after walking one block. He has to stop for symptosm to [facility]. Patient had an EKG reveling anterolateral T wave inversions suggestive of myocardial ischemia. Review of Systems - Constitutional Constitutional: absent: As Per HPI, Anorexia, Chills, Daytime Sleepiness, Excessive Sweating, Fatigue, Fever, Frequent Falls, Headache, Increased Appetite , Lethargy, Malaise, Night Sweats, Snoring, Sleep Apnea, Weight Gain, Weight Loss, Weakness, Other - EENT Eyes: absent: As Per HPI, Blind Spots, Blurred Vision, Change in Vision, Decreased Night Vision, Diplopia, Discharge, Dry Eye, Exophthalmos, Floaters, Irritation, Itchy Eyes, Loss of Peripheral Vision, Pain, Photophobia, Requires Corrective Lenses, Sees Flashes, Spots in Vision, Tunnel Vision, Other Visual Disturbances, Loss of Vision, Other Ears: absent: As Per HPI, Decreased Hearing, Ear Discharge, Ear Pain, Tinnitus, Abnormal Hearing, Disequilibrium, Dizziness, Other Nose/Mouth/Throat: absent: As Per HPI, Epistaxis, Nasal Congestion, Nasal Discharge, Nasal Obstruction, Nasal Trauma, Nose Pain, Post Nasal Drip, Sinus Pain, Sinus Pressure, Bleeding Gums, Change in Voice, Dental Pain, Dry Mouth, Dysphagia, Halitosis, Hoarsness, Lip Swelling, Mouth Lesions, Mouth Pain, Odynophagia, Sore Throat, Throat Swelling, Tongue Swelling, Facial Pain, Neck Pain, Neck Mass, Other - Cardiovascular Cardiovascular: Chest Pain with Activity, Dyspnea - Respiratory Respiratory: Dyspnea on Exertion - Gastrointestinal Gastrointestinal: absent: As Per HPI, Abdominal Pain, Belching, Bloating, Change in Bowel Habits, Change in Stool Character, Coffee Ground Emesis, Constipation, Cramping, Diarrhea, Dyspepsia, Dysphagia, Early Satiety, Excessive Flatus, Fecal Incontinence, Heartburn, Hematemesis, Hematochezia, Loose Stools, Melena, Nausea, Odynophagia, Temesmus, Vomiting, Other - Genitourinary Genitourinary: absent: As Per HPI, Change in Urinary Stream, Difficulty Urinating, Dysuria, Flank Pain, Hematuria, Pyuria, Nocturia, Urinary Incontinence, Urinary Frequency, Urinary Hesitance, Urinary Urgency, Voiding Freq/Small Amts, Freq UTI, Hx Renal/Bladder Calculi, Hx /Renal Surgery, Bladder Distension, Other - Musculoskeletal Musculoskeletal: absent: As Per HPI, Abnormal Gait, Arthralgias, Atrophy, Back Pain, Deformity, Joint Swelling, Limited Range of Motion, Loss of Height, Muscle Cramps, Muscle Weakness, Myalgias, Neck Pain, Numbness, Radiating Pain into Limb, Stiffness, Tingling, Other - Integumentary Integumentary: absent: As Per HPI, Acne, Alopecia, Bleeding Lesions, Change in Hair, Change in Nails, Change in Pigmentation, Changing Lesions, Dry Skin, Erythema, Furuncle, Hirsutism, Lesions, New Lesions, Non-Healing Lesions, Photosensitivity, Pruritus, Rash, Skin Pain, Skin Ulcer, Sores, Striae, Swelling , Unusual Bruising, Wounds, Jaundice, Other - Neurological Neurological: absent: As Per HPI, Abnormal Gait, Abnormal Hearing, Abnormal Movements, Abnormal Speech, Behavioral Changes, Burning Sensations, Confusion, Convulsions, Disequilibrium, Dizziness, Numbness, Focal Weakness, Frequent Falls , Headaches, Lack of Coordination, Loss of Vision, Memory Loss, Paresthesias, Radicular Pain, Restless Legs, Sensory Deficit, Syncope, Tingling, Tremor, Vertigo, Weakness, Other Visual Disturbances, Other - Psychiatric Psychiatric: absent: As Per HPI, Abnormal Sleep Pattern, Anhedonia, Anxiety, Auditory Hallucinations, Behavioral Changes, Change in Appetite, Change in Libido, Confusion, Depression, Difficulty Concentrating, Hallucinations, Homicidal Ideation, Hopelessness, Irritability, Memory Loss, Mood Swings, Panic Attacks, Paranoia, Suicidal Ideation, Visual Hallucinations, Tactile Hallucinations, Other - Endocrine Endocrine: absent: As Per HPI, Change in Body Appearance, Change in Libido, Cold Intolorance, Deepening of Voice, Excessive Sweating, Fatigue, Flushing, Heat Intolorance, Increase in Ring/Shoe/Hat Size, Palpitations, Polydipsia, Polyphagia, Polyuria, Other - Hematologic/Lymphatic Hematologic: absent: As Per HPI, Easy Bleeding, Easy Bruising, Lymphadenopathy, Other Past Patient History - Past Medical History & Family History Past Medical History?: No - Past Social History Smoking Status: Light Smoker < 10 Cigarettes Daily - CARDIAC Hx Hypertension: No - PULMONARY Hx Tuberculosis: No - NEUROLOGICAL Hx Seizures: No - HEENT Hx HEENT Problems: No - RENAL Hx Chronic Kidney Disease: No - ENDOCRINE/METABOLIC Hx Endocrine Disorders: No - HEMATOLOGICAL/ONCOLOGICAL Hx Human Immunodeficiency Virus (HIV): No - INTEGUMENTARY Hx Dermatological Problems: No - MUSCULOSKELETAL/RHEUMATOLOGICAL Hx Falls: No - GASTROINTESTINAL Hx Gastrointestinal Disorders: No - GENITOURINARY/GYNECOLOGICAL Hx Sexually Transmitted Disorders: No - PSYCHIATRIC Hx Substance Use: No (heroin) - SURGICAL HISTORY Hx Surgeries: No - ANESTHESIA Hx Anesthesia: No Meds Allergies/Adverse Reactions: Allergies Allergy/AdvReac Type Severity Reaction Status Date / Time Tetracyclines Allergy Intermediate Verified 07/21/17 14:31 Penicillins Allergy Verified 07/21/17 14:31 - Medications Medications: Current Medications Acetaminophen (Tylenol 325mg Tab) 650 mg PO Q6 PRN PRN Reason: Pain, moderate (4-7) Aspirin (Aspirin Chewable) 81 mg PO DAILY [facility] Last Admin: 07/27/17 16:24 Dose: 81 mg Chlordiazepoxide (Librium) 25 mg PO Q6H [facility] Stop: 07/29/17 09:16 Last Admin: 07/28/17 03:12 Dose: 25 mg Chlordiazepoxide (Librium) 25 mg PO Q8 [facility] Stop: 07/30/17 14:01 Chlordiazepoxide (Librium) 25 mg PO BID [facility] Stop: 07/31/17 22:00 Chlordiazepoxide (Librium) 25 mg PO Q4H PRN PRN Reason: Symptoms of alcohol withdrawl Clindamycin HCl (Cleocin) 300 mg PO TID [facility] PRN Reason: Protocol Last Admin: 07/27/17 18:55 Dose: 300 mg Enoxaparin Sodium (Lovenox) 40 mg SC DAILY [facility] Folic Acid (Folic Acid) 1 mg PO DAILY [facility] Multivitamins (Hexavitamin) 1 tab PO DAILY [facility] Rosuvastatin Calcium (Crestor) 10 mg PO HS [facility] Last Admin: 07/27/17 21:48 Dose: 10 mg Thiamine HCl (Vitamin B1 Tab) 100 mg PO DAILY [facility] Physical Exam - Constitutional Appears: Non-toxic - Head Exam Head Exam: NORMAL INSPECTION - Eye Exam Eye Exam: Normal appearance - ENT Exam ENT Exam: Mucous Membranes Moist - Neck Exam Neck exam: Positive for: Full Rom - Respiratory Exam Respiratory Exam: NORMAL BREATHING PATTERN - Cardiovascular Exam Cardiovascular Exam: REGULAR RHYTHM - GI/Abdominal Exam GI & Abdominal Exam: Normal Bowel Sounds - Rectal Exam Rectal Exam: Deferred - Extremities Exam Extremities exam: Positive for: pedal edema - Back Exam Back exam: NORMAL INSPECTION - Neurological Exam Neurological exam: Alert, Oriented x3 - Psychiatric Exam Psychiatric exam: Normal Affect - Skin Skin Exam: Normal Color Results - Vital Signs Recent Vital Signs: Last Vital Signs Temp 98.1 F 07/28/17 07:59 Pulse 52 L 07/28/17 07:59 Resp 18 07/28/17 07:59 BP 112/71 07/28/17 07:59 Pulse Ox 98 07/28/17 08:13 - Labs Result Diagrams: 07/28/17 07:00 07/28/17 07:00 Labs: Laboratory Results - last 24 hr 07/27/17 07/27/17 07/27/17 11:37 11:37 11:37 WBC 7.2 RBC 4.49 Hgb 14.1 Hct 41.7 MCV 92.9 MCH 31.4 H MCHC 33.7 RDW 13.7 Plt Count 169 MPV 8.6 Neut % (Auto) 67.9 Lymph % (Auto) 23.2 [facility] % (Auto) 7.8 Eos % (Auto) 0.5 Baso % (Auto) 0.6 Neut # (Auto) 4.9 Lymph # (Auto) 1.7 [facility] # (Auto) 0.6 Eos # (Auto) 0.0 Baso # (Auto) 0.0 Sodium 144 Potassium 4.4 Chloride 104 Carbon Dioxide 28 Anion Gap 16 BUN 17 Creatinine 0.9 Est GFR ( Amer) > 60 Est GFR (Non-Af Amer) > 60 Random Glucose 98 Calcium 8.9 Total Bilirubin 0.7 AST 21 ALT 27 Alkaline Phosphatase 85 Troponin I Total Protein 7.5 Albumin 4.2 Globulin 3.2 Albumin/Globulin Ratio 1.3 Triglycerides Cholesterol LDL Cholesterol Direct HDL Cholesterol Thyroxine (T4) TSH 3rd Generation Urine Color Yellow Urine Clarity Clear Urine pH 5.0 Ur Specific [place] 1.027 Urine Protein Negative Urine Glucose (UA) Normal Urine Ketones Trace Urine Blood Negative Urine Nitrate Negative Urine Bilirubin Negative Urine Urobilinogen Normal Ur Leukocyte Esterase Neg Urine WBC (Auto) 1 Urine Opiates Screen Urine Methadone Screen Ur Barbiturates Screen Ur Phencyclidine Scrn Ur Amphetamines Screen U Benzodiazepines Scrn U Oth Cocaine Metabols U Cannabinoids Screen Alcohol, Quantitative < 10 07/27/17 07/27/17 07/28/17 11:37 14:51 07:00 WBC 7.3 RBC 4.28 L Hgb 13.5 Hct 39.8 MCV 93.1 MCH 31.6 H MCHC 34.0 RDW 13.7 Plt Count 147 MPV 9.0 Neut % (Auto) 50.0 Lymph % (Auto) 38.5 [facility] % (Auto) 9.1 Eos % (Auto) 2.0 Baso % (Auto) 0.4 Neut # (Auto) 3.6 Lymph # (Auto) 2.8 [facility] # (Auto) 0.7 Eos # (Auto) 0.1 Baso # (Auto) 0.0 Sodium Potassium Chloride Carbon Dioxide Anion Gap BUN Creatinine Est GFR ( Amer) Est GFR (Non-Af Amer) Random Glucose Calcium Total Bilirubin AST ALT Alkaline Phosphatase Troponin I 0.0220 Total Protein Albumin Globulin Albumin/Globulin Ratio Triglycerides Cholesterol LDL Cholesterol Direct HDL Cholesterol Thyroxine (T4) TSH 3rd Generation Urine Color Urine Clarity Urine pH Ur Specific [place] Urine Protein Urine Glucose (UA) Urine Ketones Urine Blood Urine Nitrate Urine Bilirubin Urine Urobilinogen Ur Leukocyte Esterase Urine WBC (Auto) Urine Opiates Screen Positive H Urine Methadone Screen Positive H Ur Barbiturates Screen Negative Ur Phencyclidine Scrn Negative Ur Amphetamines Screen Negative U Benzodiazepines Scrn Positive U Oth Cocaine Metabols Positive H U Cannabinoids Screen Negative Alcohol, Quantitative 07/28/17 07:00 WBC RBC Hgb Hct MCV MCH MCHC RDW Plt Count MPV Neut % (Auto) Lymph % (Auto) [facility] % (Auto) Eos % (Auto) Baso % (Auto) Neut # (Auto) Lymph # (Auto) [facility] # (Auto) Eos # (Auto) Baso # (Auto) Sodium 142 Potassium 4.4 Chloride 105 Carbon Dioxide 29 Anion Gap 12 BUN 21 H Creatinine 0.9 Est GFR ( Amer) > 60 Est GFR (Non-Af Amer) > 60 Random Glucose 87 Calcium 8.4 L Total Bilirubin 0.2 AST 23 ALT 23 Alkaline Phosphatase 70 Troponin I Total Protein 6.1 L Albumin 3.4 L Globulin 2.7 Albumin/Globulin Ratio 1.2 Triglycerides 68 Cholesterol 152 LDL Cholesterol Direct 88 HDL Cholesterol 40 Thyroxine (T4) 7.08 TSH 3rd Generation 2.35 Urine Color Urine Clarity Urine pH Ur Specific [place] Urine Protein Urine Glucose (UA) Urine Ketones Urine Blood Urine Nitrate Urine Bilirubin Urine Urobilinogen Ur Leukocyte Esterase Urine WBC (Auto) Urine Opiates Screen Urine Methadone Screen Ur Barbiturates Screen Ur Phencyclidine Scrn Ur Amphetamines Screen U Benzodiazepines Scrn U Oth Cocaine Metabols U Cannabinoids Screen Alcohol, Quantitative - EKG Data EKG Interpreted by: Myself Assessment & Plan (1) Unstable angina Assessment and Plan: I reviewed the echocardiogram with the patient. There is a wall mortion abnormality of the mid to distal anterior wall and the apex suggesive of involvement of the LAD which corresponsds to the EKG. The patient will need cardiac catheterization for evaluation. Keep NPO for cath today Status: Acute
[2017-07-28] MEDS: Enoxaparin 40 mg Syringe SC SCH (11:06)
[2017-07-28] MEDS: Multiple Vitamins Tab PO SCH (11:06)
[2017-07-28] MEDS ORDERED: Iohexol 350mg/ml 100 ML ONE (15:13)
[2017-07-28] MEDS ORDERED: Iodixanol 320 MG/ML 200 ML BOTTLE IV ONE (15:13)
[2017-07-29 00:10] VITALS: RESP 20
--- NOTE | 2017-07-29 02:14 | CARD ---
APPROVED REPORT EXAM: Two-dimensional and M-mode echocardiogram with Doppler, color Doppler with contrast. Other Information Quality : GoodRhythm : Bradycardia INDICATION Abnormal EKG/Arrhythmia HEROIN ABUSE, ALCOHOL DEPEND. 2D DIMENSIONS IVSd0.8 (0.7-1.1cm)LVDd4.7 (3.9-5.9cm) PWd0.9 (0.7-1.1cm)LVDs3.2 (2.5-4.0cm) FS (%) 31.7 %LVEF (%)45.0 (>50%) M-Mode DIMENSIONS RVDd2.21 (2.1-3.2cm)Left Atrium (MM)3.28 (2.5-4.0cm) IVSd1.08 (0.7-1.1cm)Aortic Root2.61 (2.2-3.7cm) LVDd4.67 (4.0-5.6cm)Aortic Cusp Exc.1.90 (1.5-2.0cm) PWd1.26 (0.7-1.1cm)FS (%) 31 % LVDs3.21 (2.0-3.8cm) Mitral Valve MV E Icqfhmfr51.4cm/sMV A Zkckyzww32.9cm/sE/A ratio1.7 TDI E/Lateral E'0.0E/Medial E'0.0 Tricuspid Valve TR Peak Etpkntks146pj/sTR Peak Gr.[id number] LEFT VENTRICLE The left ventricle is normal size. There is normal left ventricular wall thickness. Left ventricle systolic function is mildly impaired. The Ejection Fraction is 45-50%. The left ventricular diastolic function is normal. No left ventricle thrombus noted on this study. RIGHT VENTRICLE The right ventricle is normal size. There is normal right ventricular wall thickness. The right ventricular systolic function is normal. ATRIA The left atrium size is normal. The right atrium size is normal. The interatrial septum is intact with no evidence for an atrial septal defect. AORTIC VALVE The aortic valve is normal in structure. No aortic regurgitation is present. There is no aortic valvular stenosis. There is no aortic valvular vegetation. MITRAL VALVE The mitral valve is normal in structure. There is no evidence of mitral valve prolapse. There is no mitral valve stenosis. There is no mitral valve regurgitation noted. TRICUSPID VALVE The tricuspid valve is normal in structure. There is mild to moderate tricuspid regurgitation. Right ventricular systolic pressure is estimated at less than 30 mmHg. There is no pulmonary hypertension. PULMONIC VALVE The pulmonic valve is not well visualized. There is trace pulmonic valvular regurgitation. GREAT VESSELS The aortic root is normal in size. PERICARDIAL EFFUSION There is no significant pericardial effusion. <Conclusion> Left ventricle systolic function is mildly impaired. The Ejection Fraction is 45-50%. No aortic regurgitation is present. There is no mitral valve regurgitation noted. There is mild to moderate tricuspid regurgitation. There is no pulmonary hypertension. There is trace pulmonic valvular regurgitation.
--- NOTE | 2017-07-29 07:06 | CP.PCM.PN ---
Subjective - Date & Time of Evaluation Date of Evaluation: 07/29/17 Time of Evaluation: 07:06 Objective - Vital Signs/Intake and Output Vital Signs (last 24 hours): Temp Pulse Resp BP Pulse Ox 98.7 F 58 L 20 144/77 97 07/29/17 00:00 07/29/17 00:00 07/29/17 00:00 07/29/17 00:00 07/29/17 00:00 - Medications Medications: Current Medications Acetaminophen (Tylenol 325mg Tab) 650 mg PO Q6 PRN PRN Reason: Pain, moderate (4-7) Aspirin (Aspirin Chewable) 81 mg PO DAILY [facility] Last Admin: 07/28/17 11:47 Dose: 81 mg Chlordiazepoxide (Librium) 25 mg PO Q6H [facility] Stop: 07/29/17 09:16 Last Admin: 07/29/17 04:06 Dose: 25 mg Chlordiazepoxide (Librium) 25 mg PO Q8 [facility] Stop: 07/30/17 14:01 Chlordiazepoxide (Librium) 25 mg PO BID [facility] Stop: 07/31/17 22:00 Chlordiazepoxide (Librium) 25 mg PO Q4H PRN PRN Reason: Symptoms of alcohol withdrawl Clindamycin HCl (Cleocin) 300 mg PO TID [facility] PRN Reason: Protocol Last Admin: 07/28/17 18:00 Dose: Not Given Clopidogrel Bisulfate (Plavix) 75 mg PO ONCE ONE Stop: 07/29/17 07:16 Clopidogrel Bisulfate (Plavix) 75 mg PO DAILY [facility] Enoxaparin Sodium (Lovenox) 40 mg SC DAILY [facility] Last Admin: 07/28/17 11:06 Dose: Not Given Folic Acid (Folic Acid) 1 mg PO DAILY [facility] Last Admin: 07/28/17 11:06 Dose: Not Given Multivitamins (Hexavitamin) 1 tab PO DAILY [facility] Last Admin: 07/28/17 11:06 Dose: Not Given Rosuvastatin Calcium (Crestor) 20 mg PO HS [facility] Last Admin: 07/28/17 22:25 Dose: 20 mg Thiamine HCl (Vitamin B1 Tab) 100 mg PO DAILY [facility] Last Admin: 07/28/17 11:06 Dose: Not Given - Labs Labs: 07/28/17 07:00 07/28/17 07:00
[2017-07-29 08:32] LABS: BASO % 0.3 % (0.0-2.0); EOS # 0.1 K/uL (0.0-0.7); HEMOGLOBIN 14.2 g/dL (12.0-18.0); LYMPH % 28.1 % (20.0-40.0); MEAN CORPUSCULAR HEMOGLOBIN 31.6 pg (27.0-31.0); MEAN PLATELET VOLUME 9.2 fL (7.2-11.7); MONO # 0.8 K/uL (0.0-0.8); MONO % 11.8 % (0.0-10.0); NEUT # 4.1 K/uL (1.8-7.0); NEUT % 57.8 % (50.0-75.0); RBC 4.5 Mil/uL (4.40-5.90); RED CELL DISTRIBUTION WIDTH 13.7 % (11.5-14.5)
[2017-07-29 08:45] LABS: ALB/GLOB RATIO 1.2 (1.0-2.1); ALBUMIN 3.5 g/dL (3.5-5.0); ALT/SGPT 22 U/L (21-72); AST/SGOT 25 U/L (17-59); BLOOD UREA NITROGEN 18 mg/dL (9-20); CALCIUM 8.4 mg/dl (8.6-10.4); GFR AFRICAN-AMERICAN > 60; GFR NON-AFRICAN AMERICAN > 60
[2017-07-29] MEDS: Multiple Vitamins Tab PO SCH (09:00)
[2017-07-29] MEDS: Enoxaparin 40 mg Syringe SC SCH ×2 (09:01→09:02)
--- NOTE | 2017-07-29 11:24 | PCM.PSYCH ---
Initial Psychiatric Evaluation - Initial Psychiatric Evaluation Type of Admission: Voluntary Legal Status: Capacity Chief Complaint (in patient's own words): I am withdrawing from Heroin.' History of Present Illness and Precipitating Events: Mr Fountain is a 52 year old HM with a PMHx of heroin, cocaine, and alcohol abuse presented to the ED with chest heaviness. EKG was done which showed t-wave changes compared to an old EKG thus the patient was admitted to medicine for obs. Patient reports a long history of abusing heroin and cocaine, and drinking. He reports of abusing 10-15 bags of heroin with $10-20 worth of cocaine. Last abuse was yesterday. As per the pt yesterday he started developing withdrawal symptoms so he came to the hospital to get help. Patient reports anxiety and irritability and reports withdrawal symptoms i.e., sweating, headaches, anxiety , back and joint pains, nausea and abdominal cramps. He denies any suicidal ideation or homicidal ideation. Patient reports poor sleep but denies any manic symptoms. He denies any auditory or visual hallucinations or any psychotic symptoms. PMD: none PMHx: Denies PSHx: Denies Allergies: Tetracyclines, Penicillins - skin rash FamHx: Mother - DM SocialHx: smokes 1/2 ppd for last 20 years; daily pint of vodka drinker; 10 bags of daily heroin use via sniffing; Denies cocaine use; Lives at home with mother Current Medications: Active Medications Generic Name Dose Route Start Last Admin Trade Name Freq PRN Reason Stop Dose Admin Acetaminophen 650 mg 07/27/17 15:36 Tylenol 325mg Tab PO Q6 PRN Pain, moderate (4-7) Aspirin 81 mg 07/27/17 16:15 07/29/17 09:00 Aspirin Chewable PO 81 mg DAILY [facility] Administration Chlordiazepoxide 25 mg 07/29/17 22:00 Librium PO 07/30/17 14:01 Q8 THI Chlordiazepoxide 25 mg 07/30/17 22:00 Librium PO 07/31/17 22:00 BID THI Chlordiazepoxide 25 mg 07/27/17 21:13 Librium PO Q4H PRN Symptoms of alcohol withdrawl Clindamycin HCl 300 mg 07/27/17 18:00 07/29/17 09:01 Cleocin PO Not Given TID [facility] Protocol Clopidogrel Bisulfate 75 mg 07/30/17 10:00 Plavix PO DAILY [facility] Enoxaparin Sodium 40 mg 07/28/17 10:00 07/29/17 09:02 Lovenox SC Not Given DAILY [facility] Folic Acid 1 mg 07/28/17 10:00 07/29/17 09:00 Folic Acid PO 1 mg DAILY [facility] Administration Multivitamins 1 tab 07/28/17 10:00 07/29/17 09:00 Hexavitamin PO 1 tab DAILY [facility] Administration Rosuvastatin Calcium 20 mg 07/28/17 22:02 07/28/17 22:25 Crestor PO 20 mg HS [facility]I Administration Thiamine HCl 100 mg 07/28/17 10:00 07/29/17 09:00 Vitamin B1 Tab PO 100 mg DAILY [facility] Administration Past Psychiatric History - Past Psychiatric History Previous Treatment History: Inpatient Pertinent Medical Hx (Current Medical&Sleep Prob, Allergies): Allergies Allergy/AdvReac Type Severity Reaction Status Date / Time Tetracyclines Allergy Intermediate Verified 07/21/17 14:31 Penicillins Allergy Verified 07/21/17 14:31 Clindamycin [Cleocin] 300 mg PO Q6 #28 cap 07/21/17 Review of Systems - Review of Systems All systems: reviewed and no additional remarkable complaints except - Psychiatric Psychiatric: Anxiety, Irritability. absent: Suicidal Ideation Mental Status Examination - Personal Presentation Personal Presentation: Looks stated age - Affect Affect: Broad - Motor Activity Motor Activity: Calm - Reliability in Providing Information Reliability in Providing Information: Fair - Speech Speech: Organized - Mood Mood: Anxious - Formal Thought Process Formal Thought Process: No Impairment - Obsessions/Compulsions Obsessions: No Compulsions: No - Cognitive Functions Orientation: Person, Place, Situation, Time Sensorium: Alert Attention/Concentration: Attentive Abstract Thinking: [place] Estimate of Intelligence: Below average Judgement: Imparied, as evidence by: Poor judgement, Intact, as evidence by: Insight regarding need for hospitalization - Risk Risk: Withdrawal, Diminished functioning - Limitations Limitations: Living alone DSM 5 DX - DSM 5 DSM 5 Diagnosis: Opioid use disorder severe Opioid withdrawal - Recommended/Plan of Treatment Treatment Recommendations and Plan of Treatment: Opioid use disorder severe Opioid withdrawal CBT Psychoeducation Supportive therapy, individual therapy Clonidine when necessary Methadone taper prn meds - Smoking Cessation Smoking Cessation Initiated: No
[2017-07-29 16:10] VITALS: BP 110/68; PULSE 67; TEMP 98.1; O2SAT 94
--- NOTE | 2017-07-29 16:52 | CP.PCM.DIS ---
Provider - Provider Date of Admission: 07/27/17 14:46 Attending physician: Zachery Lazo Jr, MD Consults: Cardiology: Dr. Campos Time Spent in preparation of Discharge (in minutes): 45 Hospital Course - Lab Results Lab Results: Most Recent Lab Values WBC 7.0 K/uL (4.8-10.8) 07/29/17 08:21 RBC 4.50 Mil/uL (4.40-5.90) 07/29/17 08:21 Hgb 14.2 g/dL (12.0-18.0) 07/29/17 08:21 Hct 41.9 % (35.0-51.0) 07/29/17 08:21 MCV 93.0 fL (80.0-94.0) 07/29/17 08:21 MCH 31.6 pg (27.0-31.0) H 07/29/17 08:21 MCHC 34.0 g/dL (33.0-37.0) 07/29/17 08:21 RDW 13.7 % (11.5-14.5) 07/29/17 08:21 Plt Count 143 K/uL (130-400) 07/29/17 08:21 MPV 9.2 fL (7.2-11.7) 07/29/17 08:21 Neut % (Auto) 57.8 % (50.0-75.0) 07/29/17 08:21 Lymph % (Auto) 28.1 % (20.0-40.0) 07/29/17 08:21 [place] % (Auto) 11.8 % (0.0-10.0) H 07/29/17 08:21 Eos % (Auto) 2.0 % (0.0-4.0) 07/29/17 08:21 Baso % (Auto) 0.3 % (0.0-2.0) 07/29/17 08:21 Neut # (Auto) 4.1 K/uL (1.8-7.0) 07/29/17 08:21 Lymph # (Auto) 2.0 K/uL (1.0-4.3) 07/29/17 08:21 [place] # (Auto) 0.8 K/uL (0.0-0.8) 03/23/18 08:21 Eos # (Auto) 0.1 K/uL (0.0-0.7) 07/29/17 08:21 Baso # (Auto) 0.0 K/uL (0.0-0.2) 07/29/17 08:21 Sodium 140 mmol/L (132-148) 07/29/17 08:21 Potassium 4.5 mmol/L (3.6-5.2) 07/29/17 08:21 Chloride 102 mmol/L (98-107) 07/29/17 08:21 Carbon Dioxide 28 mmol/L (22-30) 07/29/17 08:21 Anion Gap 15 (10-20) 07/29/17 08:21 BUN 18 mg/dL (9-20) 07/29/17 08:21 Creatinine 1.1 mg/dL (0.8-1.5) 07/29/17 08:21 Est GFR ( Amer) > 60 07/29/17 08:21 Est GFR (Non-Af Amer) > 60 07/29/17 08:21 Random Glucose 96 mg/dL (75-110) 07/29/17 08:21 Calcium 8.4 mg/dl (8.6-10.4) L 07/29/17 08:21 Total Bilirubin 0.4 mg/dL (0.2-1.3) 07/29/17 08:21 AST 25 U/L (17-59) 07/29/17 08:21 ALT 22 U/L (21-72) 07/29/17 08:21 Alkaline Phosphatase 70 U/L (38-126) 07/29/17 08:21 Troponin I 0.0220 ng/mL (0.00-0.120) 07/27/17 14:51 Total Protein 6.5 g/dL (6.3-8.3) 07/29/17 08:21 Albumin 3.5 g/dL (3.5-5.0) 07/29/17 08:21 Globulin 3.0 gm/dL (2.2-3.9) 07/29/17 08:21 Albumin/Globulin Ratio 1.2 (1.0-2.1) 07/29/17 08:21 Triglycerides 68 mg/dL (0-149) 07/28/17 07:00 Cholesterol 152 mg/dL (0-199) 07/28/17 07:00 LDL Cholesterol Direct 88 mg/dL (0-129) 07/28/17 07:00 HDL Cholesterol 40 mg/dL (30-70) 07/28/17 07:00 Thyroxine (T4) 7.08 ug/dL (5.5-11.0) 07/28/17 07:00 TSH 3rd Generation 2.35 mIU/L (0.46-4.68) 07/28/17 07:00 Urine Color Yellow (YELLOW) 07/27/17 11:37 Urine Clarity Clear (Clear) 07/27/17 11:37 Urine pH 5.0 (5.0-8.0) 07/27/17 11:37 Ur Specific [place] 1.027 (1.003-1.030) 07/27/17 11:37 Urine Protein Negative mg/dL (NEGATIVE) 07/27/17 11:37 Urine Glucose (UA) Normal mg/dL (Normal) 07/27/17 11:37 Urine Ketones Trace mg/dL (NEGATIVE) 07/27/17 11:37 Urine Blood Negative (NEGATIVE) 07/27/17 11:37 Urine Nitrate Negative (NEGATIVE) 07/27/17 11:37 Urine Bilirubin Negative (NEGATIVE) 07/27/17 11:37 Urine Urobilinogen Normal mg/dL (0.2-1.0) 07/27/17 11:37 Ur Leukocyte Esterase Neg Bruce/uL (Negative) 07/27/17 11:37 Urine WBC (Auto) 1 /hpf (0-5) 07/27/17 11:37 Urine Opiates Screen Positive (NEGATIVE) H 07/27/17 11:37 Urine Methadone Screen Positive (NEGATIVE) H 07/27/17 11:37 Ur Barbiturates Screen Negative (NEGATIVE) 07/27/17 11:37 Ur Phencyclidine Scrn Negative (NEGATIVE) 07/27/17 11:37 Ur Amphetamines Screen Negative (NEGATIVE) 07/27/17 11:37 U Benzodiazepines Scrn Positive (NEGATIVE) 07/27/17 11:37 U Oth Cocaine Metabols Positive (NEGATIVE) H 07/27/17 11:37 U Cannabinoids Screen Negative (NEGATIVE) 07/27/17 11:37 Alcohol, Quantitative < 10 mg/dl (0-10) 07/27/17 11:37 - Hospital Course Hospital Course: CC: "I want detox" HPI: Mr Fountain is a 52 year old male with a PMHx of polysubstance abuse who presented to the ED for detox. However, an EKG was done which showed t-wave changes compared to an old EKG thus the patient was admitted to medicine for obs. Patient currently has no chest pain. He states he occasionally gets deep pressure like chest pain on exertion such as when he jogs. He denies shortness of breath. Patient tested positive for cocaine however he denied using cocaine - he stated his last use for years ago. He said his friend smoked crack cocaine this morning but he did not. He's never had a stress test or had a cardiac cath. He does not have a primary medical doctor. Additionally, patient was in [facility] ER last week for a right leg cyst - he was prescribed clindamycin but only took a few doses. PMD: none PMHx: Denies PSHx: Denies Allergies: Tetracyclines, Penicillins - skin rash FamHx: Mother - DM SocialHx: smokes 1/2 ppd for last 20 years; daily pint of vodka drinker; 10 bags of daily heroin use via sniffing; Denies cocaine use; Lives at home with mother Hospital course: Patient was admitted on 07/27/17 for EKG abnormalities. Patient originally requested detox from heroin; however, there were EKG abnormalities noted on EKG, thus patient was admitted to telemetry. Cardiology was consulted, Dr. Campos, who scheduled the patient for cardiac cath on 07/28/17. During cath , patient was found to have 100% stenosis of proximal LAD and 50% of the diagonal. Patient was transferred to [facility] [place] further intervention. Patient is s /p 2 cardiac stents in the LAD with Dr. Campos. Patient was started on Crestor , Aspirin, and Palvix. Patient was not started on a beta gabino due to cocaine use. Patient seen and examined at bedside in no acute distress. Patient has no complaints and states he feels well. Patient was seen by psychiatry and encouraged to follow up as outpatient for further management of polysubstance abuse. Patient must follow up with central control room operator and PMD within 1-2 weeks of discharge. Patient stable for discharge. This is a brief summary of the hospital course. Please seem the EMR for complete details. Discharge Exam - Head Exam Head Exam: ATRAUMATIC, NORMAL INSPECTION - Eye Exam Eye Exam: EOMI, Normal appearance - ENT Exam ENT Exam: Mucous Membranes Moist - Respiratory Exam Respiratory Exam: Clear to PA & Lateral, NORMAL BREATHING PATTERN. absent: Rhonchi, Wheezes, Respiratory Distress - Cardiovascular Exam Cardiovascular Exam: REGULAR RHYTHM, +S1, +S2 - GI/Abdominal Exam GI & Abdominal Exam: Normal Bowel Sounds, Soft. absent: Distended, Tenderness - Extremities Exam Extremities exam: normal inspection, pedal pulses present - Neurological Exam Neurological exam: Alert, Oriented x3 - Psychiatric Exam Psychiatric exam: Normal Affect, Normal Mood - Skin Skin Exam: Dry, Intact, Normal Color, Warm Discharge Plan - Discharge Medications Prescriptions: Aspirin [Aspirin Chewable] 81 mg PO DAILY #30 chew Clopidogrel [Plavix] 75 mg PO DAILY #30 tab Rosuvastatin Calcium [Crestor] 20 mg PO HS #30 tab - Follow Up Plan Condition: GOOD Disposition: HOME/ ROUTINE Instructions: Smoking: Not Just Harmful to Your Lungs and Heart, Angina (DC), Bradycardia (DC), Drug Abuse and Drug Addiction (DC), Quitting Smoking, Aspirin , Clopidogrel, Rosuvastatin Additional Instructions: Patient is stable for discharge to home. Patient must take new medications as prescribed: 1. Aspirin 81mg PO dialy- take one tablet daily 2. Crestor 20mg PO HS- take 1 tablet at night 3. Plavix 75mg PO daily- take 1 tablet daily Patient must avoid cocaine, heroin, or other illicit drugs. Patient must follow up with central control room operator, Dr. Campos, within 1-2 weeks of discharge. Patient must follow up with PMD within 1-2 weeks of discharge. If symptoms worsen or reoccur, patient should return to the ED. Referrals: Zachery Lazo Jr., MD [Medical Doctor] - Tabitha Campos MD [Staff Provider] -
--- NOTE | 2017-07-29 22:25 | CARD ---
APPROVED REPORT EKG Measurement Heart [id number] <Conclusion> Sinus bradycardia Anteroseptal infarct, age undetermined T wave abnormality, consider lateral ischemia Abnormal ECG
--- NOTE | 2017-08-03 07:32 | CARD ---
APPROVED REPORT <Conclusion> Sinus rhythm Anterolateral ischemia Anteroseptal wall NE - age undetermined
--- NOTE | 2017-08-16 18:07 | CATH ---
APPROVED REPORT Procedure(s) performed: Left Heart Catheterization HISTORY The patient is a 52 year-old male with a history of : hypertension, dyslipidemia. INDICATION The indication(s) include : non-STEMI . CASE TECHNIQUE The patient was brought electively to the Cardiac Catheterization Laboratory in a fasting state and was prepped and draped in a sterile manner. The right femoral groin was infiltrated with 2% Lidocaine subcutaneous anesthesia. A sheath was inserted into the right femoral artery without difficulty. Coronary angiography was performed using coronary diagnostic catheters. The left coronary system was accessed and visualized with a Diagnostic catheter. The right coronary system was accessed and visualized with a Diagnostic catheter. The left ventricle was accessed and visualized with a Diagnostic catheter. Left ventricular/Aortic Valve gradient assessed on pullback. Left ventriculogram was performed in M[place] projection. The patient tolerated the procedure well and there were no complications associated with the procedure. Vessel Analysis The patient's coronary anatomy is right dominant. The left main coronary artery is a medium size vessel without stenosis. The left main bifurcates to the left anterior descending and circumflex. The left anterior descending artery is a large size vessel with stenosis. There is a 100% stenosis in the mid segment. The circumflex artery is a medium size vessel without stenosis. The first obtuse marginal branch is a medium size vessel without significant stenosis. The right coronary artery is a small size vessel without stenosis. Left Ventricle The left ventricle is normal in size with normal contractility. The left ventricular ejection fraction is estimated to be 50%. There was no gradient across the aortic valve upon pullback. Conclusion Single Vessel CAD Recommendations Smoking Cessation Daily ASA with Plavix for at least one year Aggressive Medical Therapy TRANSFER FOR PCI TO LAD
== END 2017-07-29 17:58 | disposition home or self-care (01) ==
LOC: C.ER 10:43 → C.9E 14:46 → C.6T 15:13 → C.5S 07-28 11:13
PROVIDERS: ADMIT Internal Medicine; ATTEND Internal Medicine
DX: I21.4 Non-ST elevation (NSTEMI) myocardial infarction (principal); F11.23 Opioid dependence with withdrawal; F14.90 Cocaine use, unspecified, uncomplicated; F17.210 Nicotine dependence, cigarettes, uncomplicated; I10 Essential (primary) hypertension; I25.10 Atherosclerotic heart disease of native coronary artery without angina pectoris; Z68.20 Body mass index [BMI] 20.0-20.9, adult; E78.5 Hyperlipidemia, unspecified; L03.90 Cellulitis, unspecified
CPT/HCPCS: 36415; 80053; 80061; 80320; 80324; 80345; 80346; 80349; 80353; 80358; 80361; 81001; 83992; 84436; 84443; 84484; 85025; 93005; 93306; 93452; 94770; 99285; C1887; C1893; G0378; J1644; Q9966; Q9967

== ENCOUNTER 2017-11-22 11:39 | Inpatient (IN) | payer OTHER, MEDICAID ==
--- NOTE | 2017-11-22 12:46 | C.PDOC ---
History Of Present Illness 52 y/o male w/PMhx of polysubstance abuse, hx of CAD s/p PTCA 07/28/17, non- compliant with medication, presents today to ED requesting detox from heroin, xanax and ETOH. Patient reports last use earlier today. Otherwise, pt denies fever, chills, headache, dizziness, neck pain, CP, SOB, dyspnea, diaphoresis, palpitation, abd. pain, vomiting, diarrhea, denies SI/HI or any other physical complaints at this time. Time Seen by Provider: 11/22/17 12:31 Chief Complaint (Nursing): Substance Abuse History Per: Patient History/Exam Limitations: no limitations Onset/Duration Of Symptoms: Days Current Symptoms Are (Timing): Still Present Suicide/Self Injury Attempted (Context): None Modifying Factor(s): Alcohol, Narcotics Past Medical History Reviewed: Historical Data, Nursing Documentation, Vital Signs Vital Signs: Last Vital Signs Temp 98.0 F 11/22/17 12:10 Pulse 63 11/22/17 12:10 Resp 20 11/22/17 12:10 BP 116/76 11/22/17 12:10 Pulse Ox 98 11/22/17 15:36 - Medical History PMH: Back Problems Surgical History: No Surg Hx - [facility] DETOXIFICATION SERVICES FOR SUBSTANCE ABUSE TREATMENT (09/17/16) GROUP ASSOCIATE PROFESSOR OF PSYCHOLOGY FOR SUBSTANCE ABUSE TREATMENT, PSYCHOEDUCATION (09/10/15) INDIV PSYCHOTHERAPY FOR SUBSTANCE ABUSE, COGNITIV BEHAVIORAL (09/17/16) INDIV PSYCHOTHERAPY FOR SUBSTANCE ABUSE, PSYCHOEDUCATION (09/17/16) PHARMACOTHERAPY FOR SUBSTANCE ABUSE, METHADONE MAINT (09/17/16) Family History: States: No Known Family Hx - Social History Hx Tobacco Use: Yes Hx Alcohol Use: Yes Hx Substance Use: Yes - Immunization History Hx Tetanus Toxoid Vaccination: No Hx Influenza Vaccination: No Hx Pneumococcal Vaccination: No Review Of Systems Constitutional: Negative for: Fever, Chills Cardiovascular: Negative for: Chest Pain Respiratory: Negative for: Cough, Shortness of Breath Gastrointestinal: Positive for: Abdominal Pain. Negative for: Nausea, Vomiting Psych: Positive for: Other (substance abuse). Negative for: Suicidal ideation, Withdrawal Physical Exam - Physical Exam Appears: Well, Non-toxic, No Acute Distress Skin: Warm, Dry, No Rash Head: Normacephalic Eye(s): bilateral: PERRL Nose: No Flaring, No Discharge Oral Mucosa: Moist Throat: No Erythema, No Drooling Neck: Normal ROM, Supple Cardiovascular: Rhythm Regular, No Murmur, No JVD Respiratory: No Decreased Breath Sounds, No Accessory Muscle Use, No Rales, No Rhonchi, No Stridor, No Wheezing Gastrointestinal/Abdominal: Soft, No Tenderness, No Distention, No Guarding, No Rebound Back: No CVA Tenderness Extremity: Normal ROM, No Pedal Edema, Capillary Refill (<2 seconds) Neurological/Psych: Oriented x3, Normal Speech, Normal Cognition ED Course And Treatment - Laboratory Results Result Diagrams: 11/22/17 13:51 11/22/17 13:51 Lab Interpretation: No Changes Compared To Prior Results ECG: Interpreted By Me, Viewed By Me ECG Rhythm: Sinus Rhythm ECG Interpretation: No Changes From Prior Interpretation Of ECG: Sinus elliott@48/min,NAD, Q wave in V2-V3, no acute T wave or ST-T changes. Compare to EKg from 07/27/17 appears improved.Correlates with pt history. O2 Sat by Pulse Oximetry: 98 (RA) Pulse Ox Interpretation: Normal - Radiology CXR: Interpreted by Me, Read By Radiologist CXR Interpretation: Yes: No Acute Disease Progress Note: Pt remained stable during the ED evaluation. At 14:30, Pt is medically cleared for PES evaluation. At 1600, pt was seen by PES, case discussed with and admission arranged to detox floor. Pt is stable for admission. Disposition - Disposition Disposition: HOSPITALIZED Disposition Time: 16:00 Condition: STABLE Forms: [facility] (Belgian) - Clinical Impression Clinical Impression: Opioid dependence - PA / THRASHER FEEDER / Resident Statement MD/DO has reviewed & agrees with the documentation as recorded. - Scribe Statement The provider has reviewed the documentation as recorded by the Tara Damico All medical record entries made by the [employer] were at my direction and personally dictated by me. I have reviewed the chart and agree that the record accurately reflects my personal performance of the history, physical exam, medical decision making, and the department course for this patient. I have also personally directed, reviewed, and agree with the discharge instructions and disposition.
--- NOTE | 2017-11-22 13:20 | RAD ---
Date of service: 11/22/2017 HISTORY: Detox/Psy COMPARISON: No prior. TECHNIQUE: Chest PA and lateral FINDINGS: LUNGS: No active pulmonary disease. PLEURA: No significant pleural effusion identified. No pneumothorax apparent. CARDIOVASCULAR: Normal. OSSEOUS STRUCTURES: No significant abnormalities. VISUALIZED UPPER ABDOMEN: Normal. OTHER FINDINGS: None. IMPRESSION: No active disease.
[2017-11-22 13:55] LABS: BASO # 0.1 K/uL (0.0-0.2); BASO % 0.8 % (0.0-2.0); EOS # 0.6 K/uL (0.0-0.7); EOS % 9.3 % (0.0-4.0); HEMOGLOBIN 14.8 g/dL (12.0-18.0); LYMPH # 2.5 K/uL (1.0-4.3); LYMPH % 37.3 % (20.0-40.0); MEAN CELL VOLUME 92.3 fL (80.0-94.0); MEAN CORPUSCULAR HEMOGLOBIN 31.9 pg (27.0-31.0); MEAN CORPUSCULAR HGB CONC 34.6 g/dL (33.0-37.0); MONO # 0.6 K/uL (0.0-0.8); MONO % 8.9 % (0.0-10.0); NEUT # 2.9 K/uL (1.8-7.0); NEUT % 43.7 % (50.0-75.0); NRBC % 0.1 % (0.0-2.0); RBC 4.65 Mil/uL (4.40-5.90); RED CELL DISTRIBUTION WIDTH 13.7 % (11.5-14.5); WHITE BLOOD COUNT 6.7 K/uL (4.8-10.8)
[2017-11-22 14:02] LABS: INR 1.1; PROTHROMBIN TIME 11.7 SECONDS (9.7-12.2)
[2017-11-22 14:05] LABS: SQUAMOUS EPITHIAL 1 /hpf (0-5); URINE BACTERIA OCC (<OCC); URINE BILIRUBIN 1+ (NEGATIVE); URINE BLOOD NEGATIVE (NEGATIVE); URINE CLARITY Hazy (Clear); URINE COLOR Amber (YELLOW); URINE GLUCOSE (UA) NORMAL (Normal); URINE LEUKOCYTE ESTERASE NEG Leu/uL (Negative); URINE PROTEIN 1+ mg/dL (NEGATIVE)
[2017-11-22 14:07] LABS: ALB/GLOB RATIO 1.5 (1.0-2.1); ALBUMIN 4.5 g/dL (3.5-5.0); ALT/SGPT 28 U/L (21-72); AST/SGOT 35 U/L (17-59); BLOOD UREA NITROGEN 17 mg/dL (9-20); CALCIUM 9.2 mg/dl (8.6-10.4); GFR AFRICAN-AMERICAN > 60; GFR NON-AFRICAN AMERICAN > 60
[2017-11-22 14:19] LABS: B-TYPE NATRIURETIC PEPTIDE 191 pg/mL (0-900)
[2017-11-22 14:25] LABS: BARBITURATES, UR NEGATIVE (NEGATIVE); PHENCYCLIDINE, UR NEGATIVE (NEGATIVE)
[2017-11-22 14:50] LABS: BENZODIAZEPINES, UR POSITIVE (NEGATIVE); OPIATES, UR POSITIVE (NEGATIVE)
--- NOTE | 2017-11-22 16:46 | PCM.BM ---
<Dada Xiao - Last Filed: 11/22/17 16:45> Treatment Plan Problems - Problems identified on initial assessmt potential for opiate withdrawal Date Initiated: 11/22/17 Time Initiated: 16:46 Status: Active Treatment assets and liabiliti Patient Liabilities: substance abuse, medical problems, legal issue - Milieu Protocol Maintain good personal hygiene: daily Encourage regular showers, daily Remind patient to perform daily oral care, daily Assist patient to perform ADL's Maintain personal safety: every shift Educate patient to report safety concerns to staff, every shift Monitor environment for contraband/sharps Medication safety: Monitor for expected outcome, potential side effects: every shift, Assess barriers to learning: every shift, Assess readiness for medication education: every shift <Juanita Tolentino - Last Filed: 11/23/17 14:35> Family Contact Family involvement: Famliy/SO not involved - Goals for Treatment Patient goals for treatment: Complete detox and transition to Suboxone maintenance. Discharge/Continuing Care - Education Needs Education Needs: Patient Medication, Patient Diagnosis/Disease Process, Patient Coping Skills, Patient Anger Management skills, Patient Placement options, Patient Community resources - Discharge Discharge Criteria: Free of agitation, No longer exhibiting s/s of withdrawal, Reduction of target symptoms Discharge to:: Home, With Family - Treatment Team Participation Patient/Family/SO Statement: 11/23/17 14:35 I wanna go on Suboxone from here. Discussed with Family/SO: No Was Patient/Family/SO present at Treatment Team Meeting: Yes
--- NOTE | 2017-11-23 15:19 | PCM.PSYCH ---
Initial Psychiatric Evaluation - Initial Psychiatric Evaluation Type of Admission: Voluntary Legal Status: Capacity Chief Complaint (in patient's own words): "I want to be clean" History of Present Illness and Precipitating Events: Patient is a 52 year old male with a past medical history of heroin, cocaine, and alcohol abuse. He came to [facility] ED requesting detox from heroin and ETOH. The patient was last at [facility] in April. Following his discharge that patient was in fpc and relapsed after being in fpc. The patient states that he does 10-15 bags of heroin a day. The patient admits to ETOH and Xanax use. He has withdrawal sxs Past Medical History: CAD s/p PTCA 07/28/17 Family History: mother- diabetes Social History: smokes 1/2 pack per day for the last 20 years, lives at home with his mother, is unemployed and on social security Current Medications: Active Medications Generic Name Dose Route Start Last Admin Trade Name Freq PRN Reason Stop Dose Admin Aspirin 81 mg 11/23/17 10:30 11/23/17 10:27 Aspirin Chewable PO 81 mg DAILY THI Administration Clonidine HCl 0.1 mg 11/22/17 19:47 Catapres PO Q8 PRN COWS Score More or Equal to 5 Clopidogrel Bisulfate 75 mg 11/23/17 10:30 11/23/17 11:16 Plavix PO 75 mg DAILY THI Administration Hydroxyzine HCl 50 mg 11/22/17 19:49 11/22/17 19:56 Atarax PO 50 mg Q6H PRN Administration Anxiety Loperamide HCl 2 mg 11/22/17 19:47 Imodium PO Q8 PRN Diarrhea Methadone HCl 15 mg 11/23/17 10:00 11/23/17 09:58 Methadone PO 11/27/17 09:59 15 mg Q24H THI Administration Taper Ondansetron HCl 4 mg 11/22/17 19:47 11/22/17 19:56 Zofran Tab PO 4 mg Q8 PRN Administration Nausea/Vomiting Rosuvastatin Calcium 20 mg 11/23/17 22:00 Crestor PO HS THI Trazodone HCl 100 mg 11/22/17 22:00 11/22/17 21:22 Desyrel PO Not Given HS THI Past Psychiatric History - Past Psychiatric History Previous Treatment History: None Pertinent Medical Hx (Current Medical&Sleep Prob, Allergies): Allergies Allergy/AdvReac Type Severity Reaction Status Date / Time Tetracyclines Allergy Intermediate Verified 11/22/17 12:13 Penicillins Allergy Verified 11/22/17 12:13 Aspirin [Aspirin Chewable] 81 mg PO DAILY #30 chew 07/29/17 Clopidogrel [Plavix] 75 mg PO DAILY #30 tab 07/29/17 Rosuvastatin Calcium [Crestor] 20 mg PO HS #30 tab 07/29/17 Review of Systems - Neurological Neurological: UNREMARKABLE - Psychiatric Psychiatric: Abnormal Sleep Pattern, Anxiety, Depression, Difficulty Concentrating. absent: Hallucinations, Homicidal Ideation, Suicidal Ideation Mental Status Examination - Personal Presentation Personal Presentation: Looks stated age - Affect Affect: Constricted - Motor Activity Motor Activity: Calm - Reliability in Providing Information Reliability in Providing Information: Fair - Speech Speech: Organized - Mood Mood: Depressed - Formal Thought Process Formal Thought Process: No Impairment - Cognitive Functions Orientation: Person, Place, Situation, Time Sensorium: Alert Attention/Concentration: Attentive Abstract Thinking: [place] Estimate of Intelligence: Below average Judgement: Imparied, as evidence by: Lack of insight into illness Memory: Recent intact, as evidence by: Ability to recall events of the day, Remote intact, as evidenced by: Ability to recall historical events - Risk Risk: Withdrawal, Diminished functioning - Strength & Assets Inventory Strength & Assets Inventory: Cooperative - Limitations Limitations: Other DSM 5 DX - DSM 5 DSM 5 Diagnosis: Opiod Use Disorder, severe Opioid withdrawal Alcohol use d/o - moderate Sedative, hypnotic use d/o - moderate - Recommended/Plan of Treatment Treatment Recommendations and Plan of Treatment: Taper with methadone Gabapentin for augmentation As needed medications All risks, benefits and alternatives of the meds discussed, and the pt agreed and understood. Attend groups and activities Supportive therapy and psychoeducation [place] for abstinence CBT for relapse prevention Encourage MAT Refer to rehab or IOP, and self-help groups Alcohol abuse disorder, severe Smoking cessation with [place] Nicotine patch if needed 34 min Projected ELOS: 4-5 days Prognosis: good w treatment - Smoking Cessation Smoking Cessation Initiated: Yes
--- NOTE | 2017-11-23 17:20 | CARD ---
APPROVED REPORT Date of service: 11/22/2017 EKG Measurement Heart [id number] ID [id number] <Conclusion> Sinus bradycardia Septal infarct, age undetermined Abnormal ECG
[2017-11-24] MEDS: Multiple Vitamins Tab PO SCH (10:01)
[2017-11-24 13:48] VITALS: RESP 18
--- NOTE | 2017-11-24 14:21 | PCM.PYCHPN ---
Psychiatric Progress Note - Psychiatric Progress Note Patient Chief Complaint: "I want to be clean" Medication Change: Yes Medical Record Reviewed: Yes Mental Status Examination - Cognitive Function Orientation: Person, Place, Situation, Time - Mood Mood: Depressed - Affect Affect: Constricted - Formal Thought Process Formal Thought Process: No Impairment - Homicidal Ideation Homicidal Ideation: No Goal/Treatment Plan - Goal/Treatment Plan Progress Toward Problem(s) and Goals/Treatment Plan: Taper with methadone Gabapentin for augmentation As needed medications All risks, benefits and alternatives of the meds discussed, and the pt agreed and understood. Attend groups and activities Supportive therapy and psychoeducation [place] for abstinence CBT for relapse prevention Encourage MAT Refer to rehab or IOP, and self-help groups Alcohol abuse disorder, severe Smoking cessation with [place] Nicotine patch if needed 34 min
[2017-11-25 08:47] VITALS: BP 135/82; PULSE 56; TEMP 98.5; O2SAT 100
--- NOTE | 2017-11-25 08:49 | PCM.PYCHDC ---
Mental Status Examination - Mental Status Examination Orientation: Person Discharge Summary - Discharge Note Consultations:: List each consultation separately and include: 1. Reason for request. 2. Findings. 3. Follow-up Summary of Hospital Course include:: 1. Description of specific treatment plan utilized for patients during their course of treatmen. 2. Summarize the time- course for resolution of acute symptoms and/or regressed behaviors. 3. Describe issues identified and worked on during hospitalization. 4. Describe medication utilized. 5. Describe medical problems identified and treated. 6. Reassessment of suicide risk Summary of Hospital Course: Patient is a 52 year old male with a past medical history of heroin, cocaine, and alcohol abuse. He came to [facility] ED requesting detox from heroin and ETOH. The patient was last at [facility] in April. Following his discharge that patient was in retirement and relapsed after being in retirement. The patient states that he does 10-15 bags of heroin a day. The patient admits to ETOH and Xanax use. He has withdrawal sxs Past Medical History: CAD s/p PTCA 07/28/17 Family History: mother- diabetes Social History: smokes 1/2 pack per day for the last 20 years, lives at home with his mother, is unemployed and on social security He will call suboxone doctors. - Final Diagnosis (DSM 5) Condition upon Discharge: STABLE Disposition: HOME/ ROUTINE Follow-up Treatment Plan: Taper with methadone Gabapentin for augmentation As needed medications All risks, benefits and alternatives of the meds discussed, and the pt agreed and understood. Attend groups and activities Supportive therapy and psychoeducation [place] for abstinence CBT for relapse prevention Encourage MAT Refer to rehab or IOP, and self-help groups Alcohol abuse disorder, severe Smoking cessation with [place] Nicotine patch if needed 34 min Prescriptions/Medication Reconciliation: Aspirin [Aspirin Chewable] 81 mg PO DAILY #30 chew Clopidogrel [Plavix] 75 mg PO DAILY #30 tab Gabapentin [Neurontin] 100 mg PO TID #90 cap hydrOXYzine HCl [Atarax] 50 mg PO DAILY PRN #30 tab PRN Reason: Anxiety QUEtiapine [Seroquel] 100 mg PO HS #30 tab Rosuvastatin Calcium [Crestor] 20 mg PO HS #30 tab
[2017-11-25] MEDS: Multiple Vitamins Tab PO SCH (09:18)
== END 2017-11-25 09:40 | disposition home or self-care (01) | DRG 745 ==
LOC: C.ER 11:39 → C.7D 16:00
PROVIDERS: ADMIT Psychiatry & Neurology Psychiatry; ATTEND Psychiatry & Neurology Psychiatry
PROC: HZ2ZZZZ Detoxification Services for Substance Abuse Treatment (ICD-10-PCS; principal; 2017-11-22)
DX: F11.23 Opioid dependence with withdrawal (principal); F10.10 Alcohol abuse, uncomplicated; F17.210 Nicotine dependence, cigarettes, uncomplicated; I25.10 Atherosclerotic heart disease of native coronary artery without angina pectoris; Z91.14 Patient's other noncompliance with medication regimen; F19.10 Other psychoactive substance abuse, uncomplicated

== ENCOUNTER 2017-12-17 17:32 | Emergency (ER) | payer MEDICAID, OTHER ==
[2017-12-17 17:38] VITALS: BP 136/88; PULSE 68; RESP 16; TEMP 98.3; O2SAT 98
[2017-12-17 17:46] VITALS: BMI 20.3
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
== END 2017-12-17 19:11 | disposition home or self-care (01) ==
LOC: C.ER 17:32
DX: S20.219A Contusion of unspecified front wall of thorax, initial encounter (principal); W22.01XA Walked into wall, initial encounter; Z72.0 Tobacco use; I25.10 Atherosclerotic heart disease of native coronary artery without angina pectoris

== ENCOUNTER 2018-07-30 13:50 | Inpatient (IN) | payer MEDICAID, OTHER ==
[2018-07-30 13:50] VITALS: BMI 20.3
--- NOTE | 2018-07-30 13:55 | C.PDOC ---
History Of Present Illness 53 y/o male presents to the ED requesting detox from Xanax and Heroin. Last used heroin yesterday, intranasally. He offers no physical complaints. Patient has no tremors, palpitations, nausea, vomiting, or psychiatric complaints. Patient denies having any suicidal or homicidal ideation. Time Seen by Provider: 07/30/18 13:54 Chief Complaint (Nursing): Substance Abuse History Per: Patient History/Exam Limitations: no limitations Onset/Duration Of Symptoms: Days Current Symptoms Are (Timing): Still Present Modifying Factor(s): Narcotics Associated Symptoms: denies: Suicidal Thoughts, Suicidal Plan Past Medical History Reviewed: Historical Data, Nursing Documentation, Vital Signs Vital Signs: Last Vital Signs Temp 97.8 F 07/30/18 13:51 Pulse 72 07/30/18 13:51 Resp 18 07/30/18 13:51 BP 146/85 07/30/18 13:51 Pulse Ox 100 07/30/18 13:51 - Medical History PMH: Back Problems, CAD Denies: HIV, HTN, Chronic Kidney Disease, Seizures, Sexually Transmitted Disease Surgical History: Coronary Stent (X2) - [facility] Procedures DETOXIFICATION SERVICES FOR SUBSTANCE ABUSE TREATMENT (11/22/17) GROUP CUSTOM DECORATING CONSULTANT FOR SUBSTANCE ABUSE TREATMENT, PSYCHOEDUCATION (09/10/15) INDIV PSYCHOTHERAPY FOR SUBSTANCE ABUSE, COGNITIV BEHAVIORAL (09/17/16) INDIV PSYCHOTHERAPY FOR SUBSTANCE ABUSE, PSYCHOEDUCATION (09/17/16) PHARMACOTHERAPY FOR SUBSTANCE ABUSE, METHADONE MAINT (09/17/16) Family History: States: Unknown Family Hx - Social History Hx Tobacco Use: Yes Hx Alcohol Use: Yes Hx Substance Use: Yes - Immunization History Hx Tetanus Toxoid Vaccination: Yes Hx Influenza Vaccination: No Hx Pneumococcal Vaccination: No Review Of Systems Constitutional: Negative for: Fever, Sweats, Weakness, Malaise, Weight loss Eyes: Negative for: Pain, Vision Change, Conjunctivae Inflammation, Eyelid Inflammation, Redness, Other ENT: Negative for: Ear Pain, Ear Discharge, Nose Pain, Nose Discharge, Nose Congestion, Mouth Pain, Mouth Swelling, Throat Pain, Throat Swelling Cardiovascular: Negative for: Chest Pain, Palpitations, Orthopnea, Paroxysmal Noc. Dyspnea, Edema, Light Headedness Respiratory: Negative for: Cough, Shortness of Breath, Hemoptysis, SOB with Excertion, Pleuritic Pain, Sputum Gastrointestinal: Negative for: Nausea, Vomiting, Abdominal Pain, Diarrhea, Constipation, Melena, Hematochezia, Hematemesis Genitourinary: Negative for: Dysuria, Frequency, Incontinence Musculoskeletal: Negative for: Neck Pain, Shoulder Pain Neurological: Negative for: Weakness, Numbness Psych: Positive for: Other (Heroin/Xanax use). Negative for: Suicidal ideation (or homicidal) Physical Exam - Physical Exam Appears: Well, Non-toxic, No Acute Distress Skin: Warm, Dry Head: Atraumatic, Normacephalic Eye(s): bilateral: Normal Inspection, PERRL, EOMI Ear(s): Bilateral: Normal Nose: Normal, No Epistaxis, No Deformity, No Septal Hematoma Oral Mucosa: Moist Tongue: Normal Appearing Lips: Normal Appearing Teeth: Normal Dentition Gingiva: Normal Appearing Throat: Normal, No Erythema, No Exudate Neck: Normal, Normal ROM, Trachea Midline, No Midline Cervical Tenderness, Supple, Other (No meningeal signs) Chest: Symmetrical Cardiovascular: Rhythm Regular, No Edema, No Friction Rub, No Murmur, No JVD Respiratory: Normal Breath Sounds, No Rales, No Rhonchi, No Wheezing Gastrointestinal/Abdominal: Normal Exam, Soft, No Tenderness, No Distention Back: Normal Inspection, No CVA Tenderness, No Vertebral Tenderness, No Decreased ROM, No Muscle Spasm, No Paraspinal Tenderness Extremity: Normal ROM, No Tenderness, No Swelling Extremity: Bilateral: Normal Color And Temperature Pulses: Left Dorsalis Pedis: Normal, Right Dorsalis Pedis: Normal Neurological/Psych: Oriented x3, Normal Speech, Normal Cognition, Normal Cranial Nerves, No Cerebellar Signs, Normal Motor, Normal Sensation Gait: Steady ED Course And Treatment - Laboratory Results Result Diagrams: 07/30/18 14:32 07/30/18 14:32 O2 Sat by Pulse Oximetry: 100 (RA) Pulse Ox Interpretation: Normal Medical Decision Making Medical Decision Makin53 y/o male presents seeking detox from heroin and xanax. No physical complaints offered. Pt denies any SI or HI. Plan: Labs ordered for medical clearance. shake out worker will see and evaluate pt for detox. 1516 neuro exam remains unremarkable No meningeal signs, no signs of benzo / etoh withdrawal Labs resulted, largely unremarkable: opiates, benzos + medically clear pending crisis 1700 No signs of withdrawal accepted by Crisis, pt in NAD, agreeable to plan Disposition - Disposition Disposition Time: 15:17 Condition: STABLE Forms: [facility] ([place]) - Clinical Impression Clinical Impression: Opiate use, Desire for detoxification - Scribe Statement The provider has reviewed the documentation as recorded by the Diamondibalexia Kwon Provider Attestation: All medical record entries made by the Diamondibalexia were at my direction and personally dictated by me. I have reviewed the chart and agree that the record accurately reflects my personal performance of the history, physical exam, medical decision making, and the department course for this patient. I have also personally directed, reviewed, and agree with the discharge instructions and disposition.
[2018-07-30 14:44] LABS: BASO % 0.7 % (0.0-2.0); EOS # 0.1 K/uL (0.0-0.7); EOS % 0.9 % (0.0-4.0); HEMOGLOBIN 14.5 g/dL (12.0-18.0); LYMPH # 1.4 K/uL (1.0-4.3); LYMPH % 24.3 % (20.0-40.0); MEAN CORPUSCULAR HEMOGLOBIN 31.9 pg (27.0-31.0); MEAN CORPUSCULAR HGB CONC 33.6 g/dL (33.0-37.0); MEAN PLATELET VOLUME 8.9 fL (7.2-11.7); MONO # 0.4 K/uL (0.0-0.8); MONO % 6.3 % (0.0-10.0); NEUT # 3.8 K/uL (1.8-7.0); NEUT % 67.8 % (50.0-75.0); RBC 4.54 Mil/uL (4.40-5.90); RED CELL DISTRIBUTION WIDTH 13.8 % (11.5-14.5); WHITE BLOOD COUNT 5.6 K/uL (4.8-10.8)
[2018-07-30 14:49] LABS: URINE BACTERIA RARE (<OCC); URINE BILIRUBIN NEGATIVE (NEGATIVE); URINE BLOOD NEGATIVE (NEGATIVE); URINE CLARITY Hazy (Clear); URINE COLOR Yellow (YELLOW); URINE GLUCOSE (UA) NORMAL (Normal); URINE LEUKOCYTE ESTERASE NEG Leu/uL (Negative); URINE PROTEIN NEGATIVE (NEGATIVE); URINE UROBILINOGEN NORMAL mg/dL (0.2-1.0)
[2018-07-30 14:56] LABS: ACETAMINOPHEN < 10.0 ug/mL (10.0-30.0); SALICYLATE 1.1 mg/dL 1
[2018-07-30 14:58] LABS: ALB/GLOB RATIO 1.7 (1.0-2.1); ALBUMIN 4.7 g/dL (3.5-5.0); ALT/SGPT 41 U/L (21-72); AST/SGOT 35 U/L (17-59); BLOOD UREA NITROGEN 20 mg/dL (9-20); CALCIUM 9.7 mg/dl (8.6-10.4); GFR NON-AFRICAN AMERICAN > 60
[2018-07-30 15:00] LABS: BARBITURATES, UR NEGATIVE (NEGATIVE); BENZODIAZEPINES, UR POSITIVE (NEGATIVE); OPIATES, UR POSITIVE (NEGATIVE); PHENCYCLIDINE, UR NEGATIVE (NEGATIVE)
[2018-07-30 15:01] LABS: MEAN CELL VOLUME 94.9 fL (80.0-94.0)
--- NOTE | 2018-07-30 17:26 | PCM.BM ---
<Nirmal Rios - Last Filed: 07/30/18 17:24> Treatment Plan Problems - Problems identified on initial assessmt Defensive Coping Date Initiated: 07/30/18 Time Initiated: 17:24 Assessment reference: NA Status: Active Denial Date Initiated: 07/30/18 Time Initiated: 17:24 Assessment reference: NA Status: Active Hopelessness Date Initiated: 07/30/18 Time Initiated: 17:25 Assessment reference: NA Status: Active Treatment assets and liabiliti Patient Assests: cooperative, insightful, negotiates basic needs Patient Liabilities: poor support system, substance abuse - Milieu Protocol Maintain good personal hygiene: daily Encourage regular showers, daily Remind patient to perform daily oral care, daily Assist patient to perform ADL's Maintain personal safety: every shift Educate patient to report safety concerns to staff, every shift Monitor environment for contraband/sharps Medication safety: Monitor for expected outcome, potential side effects: every shift, Assess barriers to learning: every shift, Assess readiness for medication education: every shift <Chano Edwards - Last Filed: 07/31/18 23:26> - Diagnosis (1) Alcohol dependence Status: Acute Interventions: 07/31/18 23:26 * Assess 7x/week regarding severity of withdrawal * Educate regarding risks, benefits, side effects and alternatives of medications * Use Motivational Interviewing for abstinence * Use CBT for relapse prevention * Medication management for withdrawal symptoms * Encourage medication assisted treatment * <Juanita Tolentino - Last Filed: 08/02/18 08:00> Family Contact Family involvement: Famliy/SO not involved - Goals for Treatment Patient goals for treatment: Complete detox and transition to IOP and MAT at [facility]. Discharge/Continuing Care - Education Needs Education Needs: Patient Medication, Patient Diagnosis/Disease Process, Patient Coping Skills, Patient Anger Management skills, Patient Placement options, Patient Community resources - Discharge Discharge Criteria: No longer exhibiting s/s of withdrawal, Reduction of target symptoms Discharge to:: Home, With Family - Treatment Team Participation Patient/Family/SO Statement: 08/02/18 08:00 "I wanna go back across the street for Suboxone..." Discussed with Family/SO: No Was Patient/Family/SO present at Treatment Team Meeting: Yes
[2018-07-30 19:02] VITALS: RESP 18
[2018-07-30] MEDS ORDERED: Aluminum Hydroxide/Magnesium Hydroxide Susp (30 mL) PO PRN (20:46)
--- NOTE | 2018-07-31 14:46 | PCM.PSYCH ---
Initial Psychiatric Evaluation - Initial Psychiatric Evaluation Chief Complaint (in patient's own words): "seeking detox" History of Present Illness and Precipitating Events: Patient is a 53 year old male admitted to detox unit yesterday seeking detox from Heroin and Xanax. Patient admits to sniffing heroin 10-12 times. Patient has used heroine for the past 22 years. He was clean 9 months ago, which then he relapsed. Patient admits to taking 3 "sticks" of xanax. admits to 1-2 sh ots of alcohol use. Patient has detoxed about 4-5 times in the past. Patient states had plans to get suboxone, but never got it and would like to try. Denies psychiatric issues, admits to depression. Lives in apartment with friend. Patient has 11 children, which he then explains he has 4 kids and 11 grand children. Psych hx: depression Medical hx: bradycardia, CAD s/p Stents x 2, on plavix, ASA and statin Family psych hx: denies Current Medications: Active Medications Generic Name Dose Route Start Last Admin Trade Name Freq PRN Reason Stop Dose Admin Al Hydrox/Mg Hydrox/Simethicone 30 ml 07/30/18 20:46 Maalox 30 Ml PO TID PRN Indigestion / Heartburn Aspirin 81 mg 07/31/18 11:45 07/31/18 12:11 Aspirin Chewable PO 81 mg DAILY THI Administration Chlordiazepoxide 25 mg 07/30/18 20:10 07/31/18 12:11 Librium PO 25 mg Q6 PRN Administration benzo withdrawal Clopidogrel Bisulfate 75 mg 07/31/18 11:45 07/31/18 12:43 Plavix PO 75 mg DAILY THI Administration Hydroxyzine HCl 25 mg 07/30/18 20:40 Atarax PO Q8 PRN Anxiety Methadone HCl 15 mg 07/31/18 10:00 07/31/18 10:35 Methadone PO 08/04/18 09:59 15 mg Q24H THI Administration Taper Rosuvastatin Calcium 5 mg 07/30/18 22:00 07/30/18 21:45 Crestor PO 5 mg HS THI Administration Trazodone HCl 50 mg 07/30/18 21:47 07/30/18 21:51 Desyrel PO 50 mg HS PRN Administration Insomnia Past Psychiatric History - Past Psychiatric History Pertinent Medical Hx (Current Medical&Sleep Prob, Allergies): Allergies Allergy/AdvReac Type Severity Reaction Status Date / Time Tetracyclines Allergy Intermediate Verified 07/30/18 13:53 Penicillins Allergy Verified 07/30/18 13:53 Aspirin [Aspirin Chewable] 81 mg PO DAILY #30 chew 11/25/17 Clopidogrel [Plavix] 75 mg PO DAILY #30 tab 11/25/17 Gabapentin [Neurontin] 100 mg PO HS 07/30/18 Simvastatin 20 mg PO DAILY 07/30/18 Review of Systems - Psychiatric Psychiatric: As Per HPI, Depression. absent: Anxiety, Homicidal Ideation, Suicidal Ideation Mental Status Examination - Personal Presentation Personal Presentation: Looks stated age - Affect Affect: Flat, Depressed - Motor Activity Motor Activity: Calm - Reliability in Providing Information Reliability in Providing Information: Fair - Speech Speech: Organized - Mood Mood: Depressed - Cognitive Functions Sensorium: Alert Attention/Concentration: Attentive - Strength & Assets Inventory Strength & Assets Inventory: Cooperative DSM 5 DX - DSM 5 DSM 5 Diagnosis: opioid Withdrawal opioid use disorder Sedative, hypnotic or anxiolytic use disorder depressive disorder, unspecified - Recommended/Plan of Treatment Discharge Plan and Discharge Criteria: Methadone taper As needed medications All risks, benefits and alternative of meds discussed Pt agreed and understood Attend groups and activities Supportive therapy and psycho education CBT for relapse prevention encourage MAT Refer for IOP and self help groups Teach healthy lifestyles methods - diet, exercise, meditation plan d/w Dr Grace Villalpando, PGY-1
--- NOTE | 2018-08-01 11:48 | PCM.PYCHPN ---
Psychiatric Progress Note - Psychiatric Progress Note Patient seen today, length of contact: 15 min Patient Chief Complaint: "seeking detox" Medical Problems: The pt is seen, chart reviewed, case discussed with staff. The pt is compliant with medications and reports no side-effects. Patient requesting ensure and vitamins. Patient notes improvement of symptoms Needs more time to stabilize. Pt attends groups and activities. Support given, psycho-education provided. After care discussed. Mental Status Examination - Cognitive Function Orientation: Person, Place, Time Memory: Intact Attention: WNL Concentration: WNL Association: WNL Fund of Knowledge: WNL - Mood Mood: Depressed - Affect Affect: Flat, Depressed - Speech Speech: Appropriate - Formal Thought Process Formal Thought Process: No Impairment Goal/Treatment Plan - Goal/Treatment Plan Need for Continued Stay: Discharge may exacerbated symptoms Progress Toward Problem(s) and Goals/Treatment Plan: Continue methadone taper Gabapentin and Librium for augmentation if needed As needed medications All risks, benefits and alternatives of the meds discussed, pt agreed and understood. Attend groups and activities Supportive therapy and psychoeducation CT for abstinence CBT for relapse prevention Encourage MAT Refer to rehab or IOP, and self-help groups Teach healthy lifestyle methods, i.e. diet, exercise, meditation Smoking cessation with CT Nicotine patch if needed 34 min Estimated Date of D/C: 08/02/18
[2018-08-02 05:41] VITALS: O2SAT 97
--- NOTE | 2018-08-02 08:26 | PCM.PYCHDC ---
Mental Status Examination - Mental Status Examination Orientation: Person Discharge Summary - Discharge Note Consultations:: List each consultation separately and include: 1. Reason for request. 2. Findings. 3. Follow-up Summary of Hospital Course include:: 1. Description of specific treatment plan utilized for patients during their course of treatmen. 2. Summarize the time- course for resolution of acute symptoms and/or regressed behaviors. 3. Describe issues identified and worked on during hospitalization. 4. Describe medication utilized. 5. Describe medical problems identified and treated. 6. Reassessment of suicide risk Summary of Hospital Course: He will go to [facility] and consider suboxone. - Diagnosis (1) Alcohol dependence Current Visit: No Status: Acute - Final Diagnosis (DSM 5) Condition upon Discharge: STABLE Disposition: HOME/ ROUTINE Prescriptions/Medication Reconciliation: Aspirin [Aspirin Chewable] 81 mg PO DAILY #30 chew Clopidogrel [Plavix] 75 mg PO DAILY #30 tab Simvastatin 20 mg PO DAILY #30 tablet traZODone [Desyrel] 50 mg PO HS PRN #30 tab PRN Reason: Insomnia
[2018-08-02 09:13] VITALS: BP 115/69; PULSE 54; TEMP 97.6
[2018-08-02] MEDS ORDERED: Multiple Vitamins Tab PO SCH (10:00)
== END 2018-08-02 09:45 | disposition home or self-care (01) | DRG 745 ==
LOC: C.ER 13:50 → C.7D 16:58
PROVIDERS: ADMIT Psychiatry & Neurology Psychiatry; ATTEND Psychiatry & Neurology Psychiatry
PROC: HZ2ZZZZ Detoxification Services for Substance Abuse Treatment (ICD-10-PCS; principal; 2018-07-30)
PROC: HZ81ZZZ Medication Management for Substance Abuse Treatment, Methadone Maintenance (ICD-10-PCS; 2018-07-30)
PROC: GZ3ZZZZ Medication Management (ICD-10-PCS; 2018-07-30)
PROC: HZ80ZZZ Medication Management for Substance Abuse Treatment, Nicotine Replacement (ICD-10-PCS; 2018-07-30)
PROC: HZ46ZZZ Group Counseling for Substance Abuse Treatment, Psychoeducation (ICD-10-PCS; 2018-07-30)
PROC: HZ59ZZZ Individual Psychotherapy for Substance Abuse Treatment, Supportive (ICD-10-PCS; 2018-07-30)
DX: F11.23 Opioid dependence with withdrawal (principal); F10.20 Alcohol dependence, uncomplicated; F13.20 Sedative, hypnotic or anxiolytic dependence, uncomplicated; F32.9 Major depressive disorder, single episode, unspecified; F17.210 Nicotine dependence, cigarettes, uncomplicated; Y90.0 Blood alcohol level of less than 20 mg/100 ml; I25.10 Atherosclerotic heart disease of native coronary artery without angina pectoris; Z95.5 Presence of coronary angioplasty implant and graft

== ENCOUNTER 2018-09-12 10:11 | Inpatient (IN) | payer MEDICAID, OTHER ==
[2018-09-12 10:11] VITALS: BMI 20.3
[2018-09-12 13:52] LABS: BASO % 0.8 % (0.0-2.0); EOS # 0.1 K/uL (0.0-0.7); EOS % 1.4 % (0.0-4.0); HEMOGLOBIN 13.6 g/dL (12.0-18.0); LYMPH # 1.3 K/uL (1.0-4.3); MEAN CORPUSCULAR HEMOGLOBIN 32.2 pg (27.0-31.0); MEAN CORPUSCULAR HGB CONC 34.6 g/dL (33.0-37.0); MEAN PLATELET VOLUME 8.3 fL (7.2-11.7); MONO # 0.3 K/uL (0.0-0.8); MONO % 6.5 % (0.0-10.0); NEUT # 3.4 K/uL (1.8-7.0); NEUT % 65.3 % (50.0-75.0); RBC 4.22 Mil/uL (4.40-5.90); RED CELL DISTRIBUTION WIDTH 13.7 % (11.5-14.5); WHITE BLOOD COUNT 5.1 K/uL (4.8-10.8)
[2018-09-12 13:56] LABS: SQUAMOUS EPITHIAL < 1 /hpf (0-5); URINE BILIRUBIN NEGATIVE (NEGATIVE); URINE BLOOD NEGATIVE (NEGATIVE); URINE CLARITY Clear (Clear); URINE COLOR Yellow (YELLOW); URINE GLUCOSE (UA) 1+ mg/dL (Normal); URINE LEUKOCYTE ESTERASE NEG Leu/uL (Negative); URINE PROTEIN NEGATIVE (NEGATIVE); URINE UROBILINOGEN NORMAL mg/dL (0.2-1.0)
[2018-09-12 14:03] LABS: ALB/GLOB RATIO 1.6 (1.0-2.1); ALT/SGPT 25 U/L (21-72); AST/SGOT 37 U/L (17-59); BLOOD UREA NITROGEN 15 mg/dL (9-20); GFR NON-AFRICAN AMERICAN > 60
[2018-09-12 14:32] LABS: BARBITURATES, UR NEGATIVE (NEGATIVE); PHENCYCLIDINE, UR NEGATIVE (NEGATIVE)
--- NOTE | 2018-09-12 14:51 | C.PDOC ---
History Of Present Illness 53-year-old male presents to the ED requesting detox. Patient admits to sniffing around 7-8 bags of heroin per day. Patient states his last use was at 1430 yesterday. Patient reports feeling abdominal pain and nausea. He denies suici estela/homicidal ideation or any other drug use at this time. Time Seen by Provider: 09/12/18 12:15 Chief Complaint (Nursing): Substance Abuse History Per: Patient History/Exam Limitations: no limitations Onset/Duration Of Symptoms: Hrs Current Symptoms Are (Timing): Still Present Modifying Factor(s): Other (heroin ) Associated Symptoms: denies: Suicidal Thoughts, Suicidal Plan Involuntary Hold By: None Recent travel outside of the [place]: No Additional History Per: Patient Past Medical History Reviewed: Historical Data, Nursing Documentation, Vital Signs Vital Signs: Last Vital Signs Temp 98.2 F 09/12/18 13:45 Pulse 60 09/12/18 13:45 Resp 16 09/12/18 13:45 BP 129/76 09/12/18 13:45 Pulse Ox 98 09/12/18 13:45 Primary Care Provider: FAMILY PROVIDER,NO - Medical History PMH: Back Problems, CAD, HTN Denies: HIV, Chronic Kidney Disease, Seizures, Sexually Transmitted Disease Surgical History: Coronary Stent (X2) - [facility] Procedures DETOXIFICATION SERVICES FOR SUBSTANCE ABUSE TREATMENT (07/30/18) GROUP DIRECTOR OF RETAIL FOR SUBSTANCE ABUSE TREATMENT, PSYCHOEDUCATION (07/30/18) INDIV PSYCHOTHERAPY FOR SUBSTANCE ABUSE TREATMENT, SUPPORT (07/30/18) INDIV PSYCHOTHERAPY FOR SUBSTANCE ABUSE, COGNITIV BEHAVIORAL (09/17/16) INDIV PSYCHOTHERAPY FOR SUBSTANCE ABUSE, PSYCHOEDUCATION (09/17/16) MEDICATION MANAGEMENT (07/30/18) MEDS MGMT FOR SUBSTANCE ABUSE TREATMENT, METHADONE MAINT (07/30/18) MEDS MGMT FOR SUBSTANCE ABUSE TREATMENT, NICOTINE REPLACE (07/30/18) PHARMACOTHERAPY FOR SUBSTANCE ABUSE, METHADONE MAINT (09/17/16) Family History: States: Unknown Family Hx - Social History Hx Tobacco Use: Yes Hx Alcohol Use: Yes (3 SHOTS OF ZAHRAA A DAY) Hx Substance Use: Yes - Immunization History Hx Tetanus Toxoid Vaccination: Yes Hx Influenza Vaccination: No Hx Pneumococcal Vaccination: No Review Of Systems Constitutional: Negative for: Fever, Chills Cardiovascular: Negative for: Chest Pain Respiratory: Negative for: Cough Gastrointestinal: Positive for: Nausea, Abdominal Pain. Negative for: Vomiting, Diarrhea Musculoskeletal: Negative for: Back Pain Skin: Negative for: Bruising Neurological: Negative for: Weakness, Numbness Psych: Positive for: Other (heroin detox ) Physical Exam - Physical Exam Appears: Non-toxic, No Acute Distress Skin: Normal Color, Warm, Dry Head: Atraumatic, Normacephalic Eye(s): bilateral: Normal Inspection Oral Mucosa: Moist Neck: Supple Chest: Symmetrical, No Deformity, No Tenderness Cardiovascular: Rhythm Regular, No Murmur Respiratory: Normal Breath Sounds, No Rales, No Rhonchi, No Wheezing Gastrointestinal/Abdominal: Soft, No Tenderness, No Guarding, No Rebound Extremity: Normal ROM, Capillary Refill (less than 2 seconds ) Neurological/Psych: Oriented x3, Normal Speech, Normal Cognition ED Course And Treatment - Laboratory Results Result Diagrams: 09/12/18 13:44 09/12/18 13:44 Lab Results: Total Bilirubin 0.4 mg/dL (0.2-1.3) 09/12/18 13:44 AST 37 U/L (17-59) 09/12/18 13:44 ALT 25 U/L (21-72) 09/12/18 13:44 Alkaline Phosphatase 74 U/L (38-126) 09/12/18 13:44 Total Protein 6.5 g/dL (6.3-8.3) 09/12/18 13:44 Albumin 4.0 g/dL (3.5-5.0) 09/12/18 13:44 Globulin 2.5 gm/dL (2.2-3.9) 09/12/18 13:44 Albumin/Globulin Ratio 1.6 (1.0-2.1) 09/12/18 13:44 Urine Color Yellow (YELLOW) 09/12/18 13:44 Urine Clarity Clear (Clear) 09/12/18 13:44 Urine pH 5.0 (5.0-8.0) 09/12/18 13:44 Ur Specific [place] 1.026 (1.003-1.030) 09/12/18 13:44 Urine Protein Negative mg/dL (NEGATIVE) 09/12/18 13:44 Urine Glucose (UA) 1+ mg/dL (Normal) H 09/12/18 13:44 Urine Ketones Negative mg/dL (NEGATIVE) 09/12/18 13:44 Urine Blood Negative (NEGATIVE) 09/12/18 13:44 Urine Nitrate Negative (NEGATIVE) 09/12/18 13:44 Urine Bilirubin Negative (NEGATIVE) 09/12/18 13:44 Urine Urobilinogen Normal mg/dL (0.2-1.0) 09/12/18 13:44 Ur Leukocyte Esterase Neg Bruce/uL (Negative) 09/12/18 13:44 Urine WBC (Auto) 1 /hpf (0-5) 09/12/18 13:44 Ur Squamous Epith Cells < 1 /hpf (0-5) 09/12/18 13:44 O2 Sat by Pulse Oximetry: 98 (on RA ) Pulse Ox Interpretation: Normal Medical Decision Making Medical Decision Making: Progress: Bloodwork and urinalysis ordered and reviewed. Zofran PO given. pt is medically cleared for detox admission Disposition Discussed With : Chano Edwards Doctor Will See Patient In The: Hospital - Disposition Disposition: HOSPITALIZED Disposition Time: 15:27 Condition: GOOD - Clinical Impression Clinical Impression: Opioid use disorder, severe, dependence - PA / BIOLOGICAL SCIENCES INSTRUCTOR / Resident Statement MD/DO has reviewed & agrees with the documentation as recorded. - Scribe Statement The provider has reviewed the documentation as recorded by the Scribe (Jamia Estrada) All medical record entries made by the Scribe were at my direction and personally dictated by me. I have reviewed the chart and agree that the record accurately reflects my personal performance of the history, physical exam, medical decision making, and the department course for this patient. I have also personally directed, reviewed, and agree with the discharge instructions and disposition.
[2018-09-12 15:07] LABS: BENZODIAZEPINES, UR POSITIVE (NEGATIVE); OPIATES, UR POSITIVE (NEGATIVE)
--- NOTE | 2018-09-12 16:24 | PCM.BM ---
<Dada Xiao - Last Filed: 09/12/18 16:21> Treatment Plan Problems - Problems identified on initial assessmt denial Date Initiated: 09/12/18 Time Initiated: 16:22 Assessment reference: NA Status: Active defensive coping Date Initiated: 09/12/18 Time Initiated: 16:22 Assessment reference: NA Status: Active chronic low self esteem Date Initiated: 09/12/18 Time Initiated: 16:23 Assessment reference: NA Status: Active Treatment assets and liabiliti Patient Assests: cooperative, insightful, negotiates basic needs Patient Liabilities: medical problems - Milieu Protocol Maintain good personal hygiene: daily Encourage regular showers, daily Remind patient to perform daily oral care, daily Assist patient to perform ADL's Conduct patient checks and document Observation sheet: Q15 minutes Maintain personal safety: every shift Educate patient to report safety concerns to staff, every shift Monitor environment for contraband/sharps Medication safety: Monitor for expected outcome, potential side effects: every shift, Assess barriers to learning: every shift, Assess readiness for medication education: every shift <Juanita Tolentino - Last Filed: 09/13/18 13:39> Family Contact Family involvement: Famliy/SO not involved - Goals for Treatment Patient goals for treatment: Complete detox and transition to MAT with Suboxone at [facility]. Discharge/Continuing Care - Education Needs Education Needs: Patient Medication, Patient Diagnosis/Disease Process, Patient Coping Skills, Patient Anger Management skills, Patient Placement options, Patient Community resources - Discharge Discharge Criteria: No longer exhibiting s/s of withdrawal, Reduction of target symptoms Discharge to:: Home, With Family - Treatment Team Participation Patient/Family/SO Statement: 09/13/18 13:40 "I wanna go back on Suboxone across the street." Discussed with Family/SO: No Was Patient/Family/SO present at Treatment Team Meeting: Yes <Chano Edwards - Last Filed: 09/14/18 05:25> - Diagnosis (1) Opioid use disorder, severe, dependence Status: Acute Interventions: 09/14/18 05:25 * Assess 7x/week regarding severity of withdrawal * Educate regarding risks, benefits, side effects and alternatives of medications * Use Motivational Interviewing for abstinence * Use CBT for relapse prevention * Medication management for withdrawal symptoms * Encourage medication assisted treatment *
[2018-09-12] MEDS ORDERED: Magnesium Hydroxide Susp 30 ml UD PO PRN (17:20)
--- NOTE | 2018-09-13 10:04 | PCM.PSYCH ---
Initial Psychiatric Evaluation - Initial Psychiatric Evaluation Type of Admission: Voluntary Legal Status: Capacity Chief Complaint (in patient's own words): "Not good" History of Present Illness and Precipitating Events: The pt is seen, chart reviewed, and case discussed. Pt is a 53 y/o male single, with 5 children and 11 grandchildren, unemployed, on SS disability for work-related injury, and homeless. Pt came into [facility] on 09/12/18 requesting heroin detox. He uses 7 to 8 bags/day of heroin intranasal for the past 10 years, but started when he was 26 y/o. His last use was 09/11/18 at 4pm. He also uses 1.5 sticks/day of benzodiazepines for the past 3 years. His last use was 09/11/18 at 330pm. He has overdosed once recently. He has been to detox here 2x before. He occasionally drinks 3 shots of vodka and has been drinking for a long time. His last drink was 09/09/18. He smokes 4 to 5 cigarettes/day since he was 17 y/o. He complains of nausea, vomiting, abdominal pain, rhinorrhea, muscle aches, restlessness and anxiety. He notes back pain, general fatigue, and lacking energy to do basic ADLs. He was last admitted on 07/2018 on 7T detox and was discharged with plan to go to [facility] and to consider suboxone treatment. He reportedly had to wait 3 weeks for an appointment at [facility] but told to wait for another 2 weeks for a reason he cannot clarify. He relapsed shortly after. Past psych hx: depression, anxiety Fam psych hx: Cousin uses heroin. PMHx: 2 cardiac stent placement, HTN, HLD, asthma. Unstable and noncompliant Current Medications: Active Medications Generic Name Dose Route Start Last Admin Trade Name Freq PRN Reason Stop Dose Admin Aspirin 81 mg 09/13/18 10:00 09/13/18 09:32 Aspirin Chewable PO 81 mg DAILY THI Administration Chlordiazepoxide 25 mg 09/13/18 00:00 09/13/18 06:30 Librium PO 09/16/18 23:59 Not Given Q6 THI Taper Clonidine HCl 0.1 mg 09/12/18 17:20 Catapres PO Q4 PRN COWS Score More or Equal to 5 Clopidogrel Bisulfate 75 mg 09/13/18 10:00 Plavix PO DAILY THI Hydroxyzine HCl 50 mg 09/12/18 22:35 Atarax PO Q6H PRN Anxiety Ibuprofen 600 mg 09/12/18 17:20 Motrin Tab PO Q6 PRN Pain, moderate (4-7) Loperamide HCl 2 mg 09/12/18 17:20 Imodium PO Q8 PRN Diarrhea Magnesium Hydroxide 30 ml 09/12/18 17:20 Milk Of Magnesia PO 09/14/18 18:01 BID PRN Constipation Methadone HCl 15 mg 09/13/18 10:00 09/13/18 09:33 Methadone PO 09/17/18 09:59 15 mg Q24H THI Administration Taper Ondansetron HCl 4 mg 09/12/18 17:20 Zofran Tab PO Q8 PRN Nausea/Vomiting Rosuvastatin Calcium 10 mg 09/12/18 22:00 09/12/18 21:37 Crestor PO 10 mg HS THI Administration Past Psychiatric History - Past Psychiatric History Previous Treatment History: Intensive Outpatient Pertinent Medical Hx (Current Medical&Sleep Prob, Allergies): Allergies Allergy/AdvReac Type Severity Reaction Status Date / Time Tetracyclines Allergy Intermediate Verified 09/12/18 10:54 Penicillins Allergy Verified 09/12/18 10:54 Aspirin [Aspirin Chewable] 81 mg PO DAILY #30 chew 08/02/18 Clopidogrel [Plavix] 75 mg PO DAILY #30 tab 08/02/18 Simvastatin 20 mg PO DAILY #30 tablet 08/02/18 Lactose-Reduced Food [Ensure Original 237 ml] 237 ml PO AC 09/12/18 Review of Systems - Psychiatric Psychiatric: Abnormal Sleep Pattern, Anhedonia, Anxiety, Depression, Irri tability. absent: Hallucinations, Homicidal Ideation, Suicidal Ideation Mental Status Examination - Personal Presentation Personal Presentation: Looks stated age - Affect Affect: Constricted - Motor Activity Motor Activity: Calm - Reliability in Providing Information Reliability in Providing Information: Fair - Speech Speech: Organized - Mood Mood: Depressed, Anxious - Formal Thought Process Formal Thought Process: No Impairment - Cognitive Functions Orientation: Person, Place, Situation, Time Sensorium: Alert Attention/Concentration: Easily distracted Abstract Thinking: [place] Estimate of Intelligence: Average Judgement: Intact, as evidence by: Insight regarding need for hospitalization Memory: Recent intact, as evidence by: Ability to recall events of the day, Remote intact, as evidenced by: Abilit to recall sig. life events - Risk Risk: Withdrawal, Diminished functioning - Strength & Assets Inventory Strength & Assets Inventory: Cooperative - Limitations Limitations: Other DSM 5 DX - DSM 5 DSM 5 Diagnosis: opioid Withdrawal opioid use disorder Sedative, hypnotic or anxiolytic use disorder depressive disorder, unspecified - Recommended/Plan of Treatment Treatment Recommendations and Plan of Treatment: Methadone taper Librium taper plavix As needed medications All risks, benefits and alternative of meds discussed Pt agreed and understood Attend groups and activities Supportive therapy and psycho education CBT for relapse prevention encourage MAT Refer for IOP and self help groups Teach healthy lifestyles methods - diet, exercise, meditation 33 min Projected ELOS: 4-5 days
--- NOTE | 2018-09-14 14:14 | PCM.PYCHPN ---
Psychiatric Progress Note - Psychiatric Progress Note Patient Chief Complaint: "Not good" Medication Change: Yes Medical Record Reviewed: Yes Mental Status Examination - Cognitive Function Orientation: Person, Place, Situation, Time - Mood Mood: Depressed, Anxious - Affect Affect: Constricted - Formal Thought Process Formal Thought Process: No Impairment Goal/Treatment Plan - Goal/Treatment Plan Progress Toward Problem(s) and Goals/Treatment Plan: Methadone taper Librium taper plavix As needed medications All risks, benefits and alternative of meds discussed Pt agreed and understood Attend groups and activities Supportive therapy and psycho education CBT for relapse prevention encourage MAT Refer for IOP and self help groups Teach healthy lifestyles methods - diet, exercise, meditation 33 min
[2018-09-15 05:56] VITALS: TEMP 97.8
[2018-09-15 07:42] VITALS: BP 116/78; PULSE 62; RESP 19
--- NOTE | 2018-09-15 08:41 | PCM.PYCHDC ---
Mental Status Examination - Mental Status Examination Orientation: Person Discharge Summary - Discharge Note Consultations:: List each consultation separately and include: 1. Reason for request. 2. Findings. 3. Follow-up Summary of Hospital Course include:: 1. Description of specific treatment plan utilized for patients during their course of treatmen. 2. Summarize the time- course for resolution of acute symptoms and/or regressed behaviors. 3. Describe issues identified and worked on during hospitalization. 4. Describe medication utilized. 5. Describe medical problems identified and treated. 6. Reassessment of suicide risk Summary of Hospital Course: The pt is seen, chart reviewed, and case discussed. Pt is a 53 y/o male single, with 5 children and 11 grandchildren, un employed, on SS disability for work-related injury, and homeless. Pt came into [facility] on 09/12/18 requesting heroin detox. He uses 7 to 8 bags/day of heroin intranasal for the past 10 years, but started when he was 26 y/o. His last use was 09/11/18 at 4pm. He also uses 1.5 sticks/day of benzodiazepines for the past 3 years. His last use was 09/11/18 at 330pm. He has overdosed once recently. He has been to detox here 2x before. He occasionally drinks 3 shots of vodka and has been drinking for a long time. His last drink was 09/09/18. He smokes 4 to 5 cigarettes/day since he was 17 y/o. He complains of nausea, vomiting, abdominal pain, rhinorrhea, muscle aches, restlessness and anxiety. He notes back pain, general fatigue, and lacking energy to do basic ADLs. He was last admitted on 07/2018 on 7T detox and was discharged with plan to go to [facility] and to consider suboxone treatment. He reportedly had to wait 3 weeks for an appointment at [facility] but told to wait for another 2 weeks for a reason he cannot clarify. He relapsed shortly after. Past psych hx: depression, anxiety Fam psych hx: Cousin uses heroin. PMHx: 2 cardiac stent placement, HTN, HLD, asthma. Unstable and noncompliant He left for [facility]. - Diagnosis (1) Opioid use disorder, severe, dependence Status: Acute - Final Diagnosis (DSM 5) Condition upon Discharge: GOOD Disposition: HOME/ ROUTINE Follow-up Treatment Plan: Methadone taper Librium taper plavix As needed medications All risks, benefits and alternative of meds discussed Pt agreed and understood Attend groups and activities Supportive therapy and psycho education CBT for relapse prevention encourage MAT Refer for IOP and self help groups Teach healthy lifestyles methods - diet, exercise, meditation 33 min
[2018-09-16 18:39] VITALS: O2SAT 98
== END 2018-09-15 08:10 | disposition home or self-care (01) | DRG 745 ==
LOC: C.ER 10:11 → C.7D 15:25
PROVIDERS: ADMIT Psychiatry & Neurology Psychiatry; ATTEND Psychiatry & Neurology Psychiatry
PROC: GZ56ZZZ Individual Psychotherapy, Supportive (ICD-10-PCS; principal; 2018-09-12)
DX: F11.23 Opioid dependence with withdrawal (principal); F13.10 Sedative, hypnotic or anxiolytic abuse, uncomplicated; F17.210 Nicotine dependence, cigarettes, uncomplicated; E78.5 Hyperlipidemia, unspecified; F41.9 Anxiety disorder, unspecified; I10 Essential (primary) hypertension; I25.10 Atherosclerotic heart disease of native coronary artery without angina pectoris; J45.909 Unspecified asthma, uncomplicated; Z91.19 Patient's noncompliance with other medical treatment and regimen; Z95.5 Presence of coronary angioplasty implant and graft; F32.9 Major depressive disorder, single episode, unspecified